=== PATIENT | female | born 1950 ===

== ENCOUNTER 2024-08-26 13:44 | Outpatient (AMB) | payer MEDICARE, MEDICAID, SELFPAY ==
--- NOTE | 2024-08-26 13:46 | HO.SPINEOV ---
Vital Signs 08/26/24 14:04 Height 5 ft 4 in Weight 155 lb BMI 26.6 Intake Visit Reasons: back pain Intake Note: Ms. Salinas is here today c/o leg pain. Garde Manger Required: No Allergies No Known Allergies Allergy (Verified 08/26/24 14:01) Physical Exam Vital Signs: BMI result Body Mass Index 26.6 Assessment & Plan Assessment & Plan (1) SI (sacroiliac) joint dysfunction: Code(s): M53.3 - Sacrococcygeal disorders, not elsewhere classified Category: Medical Plan Dear colleague Thank you for referring Kedar Salinas to the office today with a chief complaint of right SI joint pain. HPI: This 73-year-old female has chronic pain around the SI joint. The pain is present 24 hours a day. It wakes her up at night. She can not lay on her side. She can sit for 30 minutes before she has to get up. Walking is difficult due to the pain in that same area. She denies radiating pain into her leg. She denies numbness or weakness. She completed physical therapy chiropractic therapy and injections in the lower spine and SI joint without success. PMH: Asthma/COPD, hypertension Medications: Albuterol, atorvastatin, amlodipine, alendronate Allergies: NKDA Social history: Nonsmoker Physical Exam: Pleasant female. SI joint provocative tests are positive and causing pain in the right SI joint region. Straight leg produces pain in right SI joint. No neurological deficits for motor sensation or reflexes Radiological Studies: MRI of the lumbar spine done at [facility] shows [id number] L4-5 spinal stenosis. No foraminal stenosis. Impression/Plan: This patient is most likely suffering from right SI joint pathology. Her history is not suspicious for neurogenic claudication therefore we have to ignore the mild to moderate L4-5 spinal stenosis. All conservative treatments failed. I offered her a right SI joint fusion. She is tentatively scheduled for 10/06/2024. 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 Thank you for allowing me to participate in your patients care. total time spent was 50 minutes in counseling ,coordination of plan, personal review of imaging, surgical decision making and subsequent plan Patrick Godinez MD, PhD Sp[facility] Trained Neurosurgeon Director, [facility] Coding Level of Care Code New Pt Level 4 (10569) Diagnoses SI (sacroiliac) joint dysfunction M53.3
[2024-08-26 14:04] VITALS: BMI 26.6
== END 2024-08-26 15:25 | disposition home or self-care (01) ==
PROVIDERS: PCP Student in an Organized Health Care Education/Training Program; Referring Provider Physical Medicine & Rehabilitation; Visit Provider Neurological Surgery
DX: M53.3 Sacrococcygeal disorders, not elsewhere classified (principal)
CPT/HCPCS: 99204

== ENCOUNTER → 2024-08-26 13:44 | Outpatient (BNVA) | payer MEDICARE, MEDICAID, SELFPAY | PROVIDERS: Visit Provider Neurological Surgery | DX: M53.3 Sacrococcygeal disorders, not elsewhere classified (principal) | CPT/HCPCS: 99202 ==

== ENCOUNTER 2024-10-06 08:51 | Day surgery (SDC) | payer MEDICARE, MEDICAID, SELFPAY ==
[2024-09-22 12:06] VITALS: BMI 26.8
[2024-09-22 12:10] VITALS: BP 147/65; PULSE 93; RESP 18; O2SAT 95
--- NOTE | 2024-10-05 10:13 | HO.ANESPROP2 ---
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 Lumbar degenerative disc disease Spinal stenosis Dizziness Vitamin D deficiency Lumbar radiculopathy Personal history of tuberculosis GERD (gastroesophageal reflux disease) Prediabetes Hyperlipidemia Carotid atherosclerosis Elevated cholesterol HTN (hypertension) COPD (chronic obstructive pulmonary disease) Asthma Surgical History Surgical History History of esophagogastroduodenoscopy (EGD) H/O colonoscopy History of tubal ligation History of cholecystectomy Social History Social History Are you a primary client care consultant to a significant other at home: No Do you presently have visiting nurse or other home services: No Patient Tobacco Use Status: Never used Tobacco Use of substances other than those prescribed or required for medical reasons: No Have you been hit, kicked, punched, or otherwise hurt by someone within the past year? If so, by whom?: No Are you DNR?: No Advance Directives: No Advance Directives Information Provided: Yes Advance Directives on File: No Recently lost weight without trying: No Eating poorly because of decreased appetite: No Nutrition Risks: No Nutritional Risk Patient : No : No Poor oral hygiene: No Meds Allergies Allergy/AdvReac Type Severity Reaction Status Date / Time No Known Allergies Allergy Verified 10/06/24 09:02 Home Medications ?Medication ?Instructions ?Recorded ?Confirmed ?Last Taken ?Type alendronate 70 mg tablet 70 mg PO QWEEK 08/26/24 09/22/24 09/30/24 History amlodipine 5 mg tablet 5 mg PO DAILY 08/26/24 09/22/24 10/06/24 History atorvastatin 10 mg tablet 10 mg PO BEDTIME 08/26/24 09/22/24 10/05/24 History albuterol sulfate 2.5 mg/3 mL 2.5 mg inhalation Q4H PRN 09/22/24 09/22/24 Unknown History (0.083 %) solution for nebulization Shortness Of Breath Or Wheezing albuterol sulfate 90 mcg/actuation 2 puff inhalation QID PRN 09/22/24 09/22/24 10/05/24 History aerosol inhaler Shortness Of Breath Or Wheezing aspirin 81 mg tablet,delayed 81 mg PO DAILY 09/22/24 09/22/24 10/05/24 History release fluticasone furoate 200 2 ea inhalation DAILY 09/22/24 09/22/24 10/05/24 History mcg-vilanterol 25 mcg/dose inhalation powder (Breo Ellipta) loratadine 10 mg tablet 10 mg PO DAILY PRN Allergy Symptoms 09/22/24 09/22/24 10/05/24 History meloxicam 7.5 mg tablet 7.5 mg PO DAILY PRN Pain 09/22/24 09/22/24 09/30/24 History omeprazole 20 mg capsule,delayed 20 mg PO DAILY 09/22/24 09/22/24 10/06/24 History release Exam Height,Weight and Vital Signs: Height 5 ft 4 in Weight 70.76 kg Last Vital Signs Pulse 93 09/22/24 12:10 Resp 18 09/22/24 12:10 BP 147/65 H 09/22/24 12:10 Pulse Ox 95 09/22/24 12:10 O2 Del Method Room Air 09/22/24 12:10 Assessment and Plan Assessment Anesthesia Assessment: Chart Reviewed Documented by User: Zakia Garcia MD 10/06/24 10:21 [facility] Past Medical History Medical History Arthritis Back pain Cervicalgia Osteoporosis 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 Lumbar degenerative disc disease Spinal stenosis Dizziness Vitamin D deficiency Lumbar radiculopathy Personal history of tuberculosis GERD (gastroesophageal reflux disease) Prediabetes Hyperlipidemia Carotid atherosclerosis Elevated cholesterol HTN (hypertension) COPD (chronic obstructive pulmonary disease) Asthma Family History Family history of problems with anesthesia: No Surgical History Surgical History History of esophagogastroduodenoscopy (EGD) H/O colonoscopy History of tubal ligation History of cholecystectomy History of Problems with Anesthesia: No Social History Social History Are you a primary client care consultant to a significant other at home: No Do you presently have visiting nurse or other home services: No Patient Tobacco Use Status: Never used Tobacco Use of substances other than those prescribed or required for medical reasons: No Have you been hit, kicked, punched, or otherwise hurt by someone within the past year? If so, by whom?: No Are you DNR?: No Advance Directives: No Advance Directives Information Provided: Yes Advance Directives on File: No Recently lost weight without trying: No Eating poorly because of decreased appetite: No Nutrition Risks: No Nutritional Risk Patient : No : No Poor oral hygiene: No Meds Allergies Allergy/AdvReac Type Severity Reaction Status Date / Time No Known Allergies Allergy Verified 10/06/24 09:02 Home Medications ?Medication ?Instructions ?Recorded ?Confirmed ?Last Taken ?Type alendronate 70 mg tablet 70 mg PO QWEEK 08/26/24 09/22/24 09/30/24 History amlodipine 5 mg tablet 5 mg PO DAILY 08/26/24 09/22/24 10/06/24 History atorvastatin 10 mg tablet 10 mg PO BEDTIME 08/26/24 09/22/24 10/05/24 History albuterol sulfate 2.5 mg/3 mL 2.5 mg inhalation Q4H PRN 09/22/24 09/22/24 Unknown History (0.083 %) solution for nebulization Shortness Of Breath Or Wheezing albuterol sulfate 90 mcg/actuation 2 puff inhalation QID PRN 09/22/24 09/22/24 10/05/24 History aerosol inhaler Shortness Of Breath Or Wheezing aspirin 81 mg tablet,delayed 81 mg PO DAILY 09/22/24 09/22/24 10/05/24 History release fluticasone furoate 200 2 ea inhalation DAILY 09/22/24 09/22/24 10/05/24 History mcg-vilanterol 25 mcg/dose inhalation powder (Breo Ellipta) loratadine 10 mg tablet 10 mg PO DAILY PRN Allergy Symptoms 09/22/24 09/22/24 10/05/24 History meloxicam 7.5 mg tablet 7.5 mg PO DAILY PRN Pain 09/22/24 09/22/24 09/30/24 History omeprazole 20 mg capsule,delayed 20 mg PO DAILY 09/22/24 09/22/24 10/06/24 History release Exam Narrative Narrative: 12/2019. Exercise Myocardial perfusion scan-Normal exercise tolerance test. No ischemia. EF 61% Airway Mallampati Class: II (Small mouth. Overbite) TM Dist: >3cm Neck ROM: Full Loose/Missing/Broken Teeth: No (Denies broken, loose, missing teeth) Heart: RRR with occasional extra beats Lungs: CTAB Assessment and Plan Assessment Anesthesia Assessment: Anesthesia Plan Discussed and Chart Reviewed Final Anesthetic Review Family History of Problems with Anesthesia: No History of Problems with Anesthesia: No NPO: Yes (Sips of water over 2 hours ago) ASA Class: III Final Preanesthetic Review: No Changes in Pt Med Stat, Meds/Allgs Chart Reviewed, Consent Obtained/Reviewed and Anes Risks/Benef Reviewed Patient Risk: Intermediate Procedure Risk: Low Assessment/Block/Sedation in SS: Assess/Block/Sedation-SS Anesthetic Plan Anesthetic Plan: GA Disposition: Standard PACU
[2024-10-06] VITALS (16 sets, daily range): BP systolic 125–155; BP diastolic 52–71; PULSE 86–97; RESP 14–18; TEMP 36.1–36.7; O2SAT 92–100
[2024-10-06] MEDS: methocarbamoL 750 MG TABLET PO (09:26)
[2024-10-06] MEDS: Lactated Ringers 1,000 ML 100 ML IVCONT (09:26)
[2024-10-06] MEDS: Gabapentin 300 MG CAPSULE PO (09:26)
--- NOTE | 2024-10-06 09:58 | MHC.SHP ---
Pre-Procedural Eval Section A - 24 Hr Update-Section A only Date of Service: 10/06/24 The patient is an INPATIENT: No Section B - Complete if H&P > 30 days Chief Complaint: Sacrococcygeal disorders, Details of Present Illness: right si joint pain Allergies: Allergies Allergy/AdvReac Type Severity Reaction Status Date / Time No Known Allergies Allergy Verified 10/06/24 09:02 Review of Systems Sugical H&P ROS: Negative: Constitution, Cardiovascular, Respiratory, Neurological, Psychiatric, Hem-Onc, Allergic/Immunologic, Gastrointestinal, Genitourinary, Musculoskeletal, Integumentary, Endocrine and Eyes/Ears/Nose/Throat Exam Surgical H&P Exam: Normal: HEENT, Normal: Heart, Normal: Lungs, Normal: Extremities, Normal: Abdomen, Normal: Skin and Normal: Neurological (awake, alert) Plan Diagnosis/Plan: Unchanged I have reviewed the history and physical and performed a pertinent physical examination on my patient. No changes have occurred unless specified. Right SI joint fusion Time Spent With Patient Time: Total time managing care of this patient today ____ minutes.
--- NOTE | 2024-10-06 10:44 | P.DS_ITS ---
DS: Providers Provider Date of Service: 10/06/24 Date of discharge: 10/06/24 Primary care physician: YUDI Woodall Admitting clinician: Patrick Godinez DS: Diagnosis Discharge Diagnosis (1) SI (sacroiliac) joint dysfunction: Status: Acute DS: Summary Time Attestation Discharge Coordination Time (in mins): 5 Quality: Safe Use of Opioids Does Pt have an Active Cancer Diagnosis on the Problem List?: No Quality: Stroke Does the patient have a stroke diagnosis?: No Physical Exam Vital Signs: Vital Signs: Last Vital Signs Temp 98.1 F 10/06/24 09:16 Pulse 97 10/06/24 09:16 Resp 18 10/06/24 09:16 BP 155/71 H 10/06/24 09:16 Pulse Ox 100 10/06/24 09:16 O2 Del Method Room Air 10/06/24 09:16 BMI result Body Mass Index 26.8 Discharge Plan Discharge Patient Disposition: Home, Self-Care Referrals: Jayashree Mock PA [Primary Care Provider] - 1 Week Discharge Medications: New docusate sodium [Colace] 100 mg capsule 100 mg PO BID Qty: 20 0RF oxycodone 5 mg tablet 5 mg PO Q4H PRN (Reason: pain) Qty: 20 0RF Rx Instructions: Partial Fill upon patient request. Continued albuterol sulfate 2.5 mg /3 mL (0.083 %) Solution For Nebulization 2.5 mg INHALATION Q4H PRN (Reason: Shortness Of Breath Or Wheezing) aspirin 81 mg Tablet,Delayed Release (Dr/Ec) 81 mg PO DAILY meloxicam 7.5 mg Tablet 7.5 mg PO DAILY PRN (Reason: Pain) omeprazole 20 mg capsule,delayed release(DR/EC) 20 mg PO DAILY albuterol sulfate 90 mcg/actuation Hfa Aerosol Inhaler 2 puff INHALATION QID PRN (Reason: Shortness Of Breath Or Wheezing) loratadine 10 mg Tablet 10 mg PO DAILY PRN (Reason: Allergy Symptoms) fluticasone furoate-vilanterol [Breo Ellipta] 200-25 mcg/dose blister with device 2 ea inhalation DAILY amlodipine 5 mg tablet 5 mg PO DAILY atorvastatin 10 mg tablet 10 mg PO BEDTIME alendronate 70 mg tablet 70 mg PO QWEEK Discharge Orders: Discharge Order (Routine); Ordered 10/06/24 Ordered By: Jameson Gaytan Diet: Advance to usual diet Activity on Discharge: Walk with crutches Activity Restrictions/Additional Instructions: After your SI joint fusion surgery we ask you to observe the following restric tions/guidelines: Activity: It is normal to feel some discomfort as you increase your activity, but that will improve with time. We ask you avoid heavy lifting or acitivities that cause pain. As a general rule, 8lbs is a safe limit for lifting right after surgery. We ask you to stay off your right leg after surgery in order to help the SI joint fuse. Please use crutches or walker. You may return to driving when you are off narcotics (such as vicodin, oxycodone, dilaudid, etc), and you are back to normal functional capacity. If you have any concerns please check with office before driving. Return to work is specific to each patient and each surgery, so please speak with your doctor/PA at first follow up. Please bring paperwork such as FMLA at that time if you need it filled out. Follow up: Please call the office, , after surgery to arrange a 3 week follow up for wound check. Wound Care: Your wound was closed with glue, there are no sutures to remove. You may shower on post op day # 1. We ask that you do not let the water soak the wound. If it does get wet, just towel dry lightly. Please do not scrub your incision or place any type of chemical/ointment on the wound. No tub baths, pools or jacuzzis for one month. If you have any leaking or redness from your wound, or fevers, please call office Medications: We will give you a short supply of narcotics after surgery (usually one weeks worth). If you need more please call the office but do not use more than prescribed. You will need to give our office 48 hours notice if you need narcotics refilled and we do not fill narcotics on weekends or evenings. If you are on a narcotic, it is a good idea to take a stool softener such as colace or senna to avoid constipation If you take blood thinner such as aspirin, Plavix, Coumadin, Effient, Eliquis etc for conditions such as Afib, DVT, Pulmonary embolus, coronary disease, stents etc please speak with your surgeon about specific details as to when you can resume these medications. You can resume NSAIDs on post op day 1 (eg: Motrin, Naproxen, etc). Print Language: Swedish
--- NOTE | 2024-10-06 11:29 | W.PM.OPN ---
Operative Note Operative Note Date of Service: 10/06/24 Narrative: Preoperative diagnosis: Right sacroiliac joint dysfunction Postoperative diagnosis: Same Operative procedure: Right sacroiliac joint fusion with 1 allograft implant Surgeon: Patrick Godinez MD, PhD [employer] Instructor: Jameson Gaytan PA-C Anesthesia: General Description of procedure: The patient is suffering from right SI joint dysfunction refractory to nonoperative management. The patient has tried and failed all forms of conservative manage med except for an excellent short-term response to a sacroiliac joint injection. The sacroiliac joint was confirmed to be the pain generator after repeated pain blocks. The patient was offered surgical treatment with fixation and arthrodesis of the SI joint. The patient was brought to the operating room and endotracheally intubated. The patient was turned in a prone position on Dustin spine table. Prepping and draping was done followed by a time-out. A C-arm was alternately positioned for lateral, oblique oblique and pelvic inlet and outlet projections througout the procedure. Skin markings were made for the anticipated position of the implant. A 2.5 cm longitudinal skin incision was made. A guide pin was inserted in an outlet oblique image for guidance follow-up insertion of dilator and working cannula. This was secured by placing an anchor pin into the ilium. Consideration was taken to cut channels utilizing a series of drills for decortication and internal fixation device placement. The implant was inserted such that it passed through the ilium, across the sacroiliac joint and into the sacrum, thus transfixing the sacroiliac joint. Proper positioning was confirmed on lateral fluoroscopy. The implant was packed with autologous bone collected from remain of the sacrum and ilium. Additional graft material was inserted into the channel void following the implant. The instruments were withdrawn. Upon completion, final images were obtained that showed a satisfactory position of the implant. Hemostasis was done. The incision was closed with an 0 Vicryl to fashion a 3-0 Vicryl subdermal layer after injecting Marcaine. Dermabond was used to approximate the surgeon. All sponge and needle counts were correct. Patient was extubated and transported in a stable condition to recovery room. Estimated blood loss: 30 mL Complications: None Disposition: Discharge to home
[2024-10-06] MEDS: fentaNYL citrate/PF 100 MCG/2 ML VIAL 25 MCG IVPUSH ×2 (12:36→12:52)
== END 2024-10-06 15:36 | disposition home or self-care (01) ==
PROVIDERS: PCP Physician Assistant Medical; Visit Provider Neurological Surgery
PROC: (CPT 27279; principal; 2024-10-06 12:00)
DX: M46.1 Sacroiliitis, not elsewhere classified (principal); M53.3 Sacrococcygeal disorders, not elsewhere classified; M81.0 Age-related osteoporosis without current pathological fracture; J44.9 Chronic obstructive pulmonary disease, unspecified; M48.07 Spinal stenosis, lumbosacral region; R73.03 Prediabetes; Z79.51 Long term (current) use of inhaled steroids; Z79.82 Long term (current) use of aspirin; Z79.899 Other long term (current) drug therapy; Z90.49 Acquired absence of other specified parts of digestive tract
CPT/HCPCS: 27279; C1713; J0131; J0690; J1100; J1885; J2003; J2371; J2405; J2704; J3010; L8699

== ENCOUNTER → 2024-10-06 08:51 | Outpatient (BNV) | payer MEDICARE, MEDICAID, SELFPAY | PROVIDERS: PCP Physician Assistant Medical; Visit Provider Physician Assistant | DX: M53.3 Sacrococcygeal disorders, not elsewhere classified (principal) | CPT/HCPCS: 27279; 99499 ==

== ENCOUNTER 2024-10-31 13:49 | Outpatient (REF) | payer MEDICARE, MEDICAID, SELFPAY | END 2024-10-31 13:50 | disposition home or self-care (01) | LOC: HO.HOSX 13:49 | PROVIDERS: PCP Physician Assistant Medical; Visit Provider Physician Assistant | DX: M53.3 Sacrococcygeal disorders, not elsewhere classified (principal); Z98.1 Arthrodesis status | CPT/HCPCS: 99212 ==

== ENCOUNTER 2024-10-31 13:49 | Outpatient (AMB) | payer MEDICARE, MEDICAID, SELFPAY ==
--- NOTE | 2024-10-31 13:54 | HO.SPINEOV ---
Intake Visit Reasons: 1st post op Intake Note: Ms. Salinas is here today for her 1st post op. Pet Supplies Salesperson Required: Yes Pet Supplies Salesperson Services: Pet Supplies Salesperson Present Allergies No Known Allergies Allergy (Verified 10/06/24 09:02) Assessment & Plan Assessment & Plan (1) SI (sacroiliac) joint dysfunction: Code(s): M53.3 - Sacrococcygeal disorders, not elsewhere classified Category: Medical Plan Operation: R. SI joint fusion Kedar is a pleasant 74 year old female who comes in today for follow up after having right SI joint fusion completed about 3 weeks ago. She reports that she has continued to have pain in her right lateral thigh despite surgery. She did have a few days of relief after surgery but has had recurrent pain with ambulation since then. It was difficult to adequately ascertain whether or not she had been weight-bearing after surgery. Initially it seemed as though she was putting weight on her right leg but using a walker for assistance. After further discussion it seems she may not have been putting weight on that leg despite the initial disclosure that she was walking with a walker vs. Crutches. Either way, we discussed the postoperative healing course, and I believe her pain is likely coming from postoperative inflammation. No new neurological deficits. The patient ambulates well and rises from a seated position without difficulty. Her posterior incision site appears closed, well healing, no signs of drainage. I would like to follow up with Kedar again in 6 weeks for her 2nd postoperative visit. At that time we will get an x-ray of the right SI joint. Manuel Godinez MD,PhD [facility] Orders: Orders XR sacroiliac joint 1-2V Today M53.3 - Sacrococcygeal disorders, not elsewhere classified Coding Level of Care Code Global (15947) Diagnoses SI (sacroiliac) joint dysfunction M53.3
== END 2024-10-31 14:13 | disposition home or self-care (01) ==
PROVIDERS: PCP Physician Assistant Medical; Visit Provider Physician Assistant
DX: M53.3 Sacrococcygeal disorders, not elsewhere classified (principal)
CPT/HCPCS: 99024

== ENCOUNTER 2024-12-14 13:37 | Outpatient (AMB) | payer MEDICARE, MEDICAID, SELFPAY ==
--- NOTE | 2024-12-14 13:31 | HO.SPINEOV ---
Intake Visit Reasons: 2nd post op with Xrays Intake Note: Ms. Salinas is here today for her 2nd post op with xrays. General Labor Required: Yes General Labor Services: General Labor Present Allergies No Known Allergies Allergy (Verified 10/06/24 09:02) Assessment & Plan Assessment & Plan (1) Right hip pain: Code(s): M25.551 - Pain in right hip Category: Medical Plan Procedure: Right sacroiliac joint fusion Kedar comes in today for her 2nd postoperative visit. To recap during her 1st postop visit she was reporting pain in her right lateral thigh. Today she reports this pain has resolved, alongside the pain that was well localized to her SI joint on the right. Unfortunately for the past few weeks she has had fairly severe pain in the right trochanteric bursa. She reports that this worsens with the excessive movement and walking. She has never been evaluated for hip pathology in the past. When describing her pain she points directly to the right lateral hip near the greater trochanter. She has pain to direct palpation of this area. No new neurological deficits. The patient ambulates well with the assistance of a cane. She rises from a seated position with the assistance. She elicits pain to passive range of motion of the right hip. I would like to have the patient referred to our colleagues in orthopedics to ensure the patient is not suffering from any underlying right-sided hip pathology. Manuel Godinez MD,PhD [facility] Orders: Referrals Orthopedics Referral M25.551 - Pain in right hip Coding Level of Care Code Global (80309) Diagnoses Right hip pain M25.551
--- OUTSIDE RECORDS SUMMARY | 2024-12-14 15:47 | XMS_ITS | Clinical Summary ---
Author Organization [facility] Address [address] [place] [address] Phone Care Team Providers Care Master Welder Name Role Phone Russel Delvalle MD Primary Care Provider Allergies Active Allergy Reactions Criticality Noted Date Comments Other 05/04/2015 Seasonal Runny nose , sneezing Medications Medication Sig Dispensed Refills Start Date End Date Status multivit-min/iron/fo lic acid/K (ADULTS MULTIVITAMIN ORAL) Take by mouth daily. Active meloxicam (MOBIC) 7.5 mg tablet Take 1 tablet (7.5 mg total) by mouth 1 (one) time each day. 09/22/2024 Active albuterol 2.5 mg /3 mL (0.083 %) nebulizer solution Take 1 Vial by nebulization every 4 hours as needed for Wheezing for up to 90 days. Dx- j44.9 copd 09/07/2024 Active alendronate (FOSAMAX) 70 mg tablet TAKE 1 TABLET BY MOUTH EVERY 7 DAYS FOR 360 DAYS. 08/24/2024 Active atorvastatin (LIPITOR) 10 mg tablet Take 1 tablet (10 mg total) by mouth 1 (one) time each day. 07/19/2024 Active amLODIPine (NORVASC) 5 mg tablet Take 1 tablet (5 mg total) by mouth 1 (one) time each day. 07/18/2024 Active omeprazole (PriLOSEC) [address] capsule Take 1 capsule (20 mg total) by mouth 1 (one) time each day. 06/29/2024 Active loratadine (CLARITIN) 10 mg tablet TAKE 1 TABLET BY MOUTH DAILY NEEDED FOR ALLERGIES. 11/25/2023 Active aspirin 81 mg EC tablet Take 1 tablet (81 mg total) by mouth 1 (one) time each day. 07/06/2023 Active Active Problems Problem Noted Date Diagnosed Date Prediabetes 07/18/2024 Lumbar spondylosis 05/12/2024 Overview (11/03/2024): Last Assessment & Plan: Patient with 2-3-year history of low back (approximately L5-S1/sacral pain), no inciting event. Patient's son acted as engineer design and construction, he states her main pain is in the low back and right low back/buttock, which patient confirmed when she demonstrated her area of pain. She had an injection in the low back about 2 years ago, did not feel it helped. Starting October 2023 she had sudden onset of right lateral hip pain in addition to her chronic back pain, which is constant. When asked, patient states she also gets a little bit of right groin and anterior thigh pain, at times has to lift the right leg to get in and out of the car. She states the pain is constant no matter what position she is in, the pain makes it difficult for her to walk any significant distance, she does not see an improvement with leaning on a shopping cart, if she is walking and sits down she does not get relief of her symptoms. When she is walking she does feel that both legs get tired/heavy. She rates the pain 8/10, constantly. She uses meloxicam and Tylenol, has tried other lrzm-xjz-ckftjji meds occasionally. 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 She denies any radiating pain down the leg, no numbness tingling in the feet or weakness. Patient had MRI lumbar spine 01/11/2024 at [facility] that shows mild L5- S1 DDD with some Modic changes, L4-5 disc bulging and mild central stenosis, DJD at both levels. No severe stenosis noted at any level. I reviewed the MRI images with the patient and her son in detail on the computer. Patient had a lumbar CT in 2020 that on the report showed moderate-severe L4-5 stenosis, does not appear severe to our review. Ms. Salinas overall has mild findings on lumbar MRI, I do not think Dr. Perez will recommend surgery but I will review the imaging with her. Some of her back pain could be related to the L5-S1 degenerative changes. I did not see any severe central stenosis and patient is not describing classic neurogenic claudication symptoms. Patient has some tenderness over the right SI joint and lateral hip, + right hip mechanical testing. To be thorough I will check right hip x-ray. She is also on atorvastatin, they could try a statin vacation for 2 weeks to see if that has any effect on her back pain. She has a follow-up appointment tomorrow with Dr. Murray, I think for right SI joint injection according to his note, will see if that gives her any improvement in her back and buttock pain. All questions answered. ADDENDUM: I reviewed patient's lumbar MRI with Dr. Perez, no findings that would require surgical intervention. I looked at patient's right hip x-ray with Dr. Perez, it looks like she has sclerotic changes right SI joint, official report pending. Dizziness 07/06/2023 Overview (11/03/2024): Last Assessment & Plan: Dizziness has been mild and constant for more than 6 months. She reported dizziness during the office visit and was also static and blood pressure check. However her blood pressure and pulse were unchanged with supine to standing position. Her heart rate is normal and EKG only showed 1 PVC. I will arrange 24-hour Holter monitor to assess the symptom and rhythm correlation. I suspect her dizziness are caused by ear problem. She does not have obvious heart murmur and echocardiogram and stress test 3 years ago were normal. She does not have symptoms to suggest angina or heart failure. I will hold off repeating cardiac imaging. Vitamin D deficiency 07/06/2023 Lumbar degenerative disc disease 09/27/2021 Spinal stenosis 09/27/2021 Overview (11/03/2024): CT 09/12: Mod-severe at L4-5 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 02/01 Atherosclerosis of both carotid arteries 020 Overview (11/03/2024): Rt 50-69% and left <49%- rpt usg in one year Chronic obstructive pulmonary disease 05/24/2018 Osteoporosis 06/01/2017 Overview (11/03/2024): Fosamax 5 yrs Essential hypertension 04/11/2016 Cervicalgia 02/03/2007 Esophageal reflux 10/20/2006 Overview (11/03/2024): 05/01/14 dr march normal upper gi and normal colonosocpy Known medical problems 10/20/2006 Overview (11/03/2024): Lt apical pl plaque with ? parenchymal opacity IMO update Encounters Date Type Department Care Team Description 10/07/2024 7:32 PM EST - 10/07/2024 11:41 PM EST Emergency [facility] Emergency [address] [place] [address] Ramiro Heller MD Chest pain, unspecified type (Primary Dx); Bilateral calf pain; Chest pain on breathing Discharge Disposition: Home or Self Care from Last 3 Months Immunizations Name Administration Dates Next Due Influenza trivalent, with pr eservative (Fluzone; Afluria) 6mo and older 09/19/2024 Surgical History Surgery Date Site/Laterality Comments TUBAL LIGATION PROCEDURE: HISTORICAL TUBAL LIGATION CHOLECYSTECTOMY PROCEDURE: HISTORICAL CHOLECYSTECTOMY ESOPHAGOGASTRODUODENOSCOPY 05/01/2014 N/A PROCEDURE: DC ESOPHAGOGASTRODUODENOSCOPY TRANSORAL DIAGNOSTIC; COMMENT: normal CHOLECYSTECTOMY PROCEDURE: DC LAPAROSCOPY SURG CHOLECYSTECTOMY Medical History Medical History Date Comments Essential hypertension 04/11/2016 DX:Essent ial hypertension Asthma-COPD overlap syndrome (CMS/HCC) 05/24/2018 DX:Asthma-COPD overlap syndr ome (HCC) Arthritis DX:Arthritis Irritable bowel syndrome wit hout diarrhea DX:Irritable bowel syndrome without diarrhea Family History Medical History Relation Name Comments Breast cancer Neg Hx Colon cancer Neg Hx Ovarian cancer Neg Hx Relation Name Status Comments Brother Alive 4,helathy Father not known Mother Sister Alive 3,healthy Social History Tobacco Use Types Packs/Day Years Used Date Smoking Tobacco: Never Smokeless Tobacco: Never Alcohol Use Standard Drinks/Week Comments No 0 (1 standard drink = 0.6 oz pur e alcohol) Sex and Gender Information Value Date Recorded Sex Assigned at Not on file Gender Identity Not on file Sexual Orientation Not on file Job Start Date Occupation Industry Not on file Not on file Not on file Obstetrics History Last Filed Vital Signs Vital Sign Reading Time Taken Comments Blood Pressure 132/80 10/07/2024 11:25 PM EST Pulse 90 10/07/2024 11:25 PM EST Temperature 36.9 ??C (98.5 ??F) 10/07/2024 11:[address] Respiratory Rate 18 10/07/2024 11:25 PM EST Oxygen Saturation 99% 10/07/2024 11:25 PM EST Inhaled Oxygen Concentration - - Weight 68 kg (150 lb) 10/07/2024 7:47 PM EST Height 162.6 cm (5' 4 ) 10/07/2024 7:47 PM EST Body Mass Index 25.75 10/07/2024 7:47 PM EST Plan of Treatment Upcoming Encounters Date Type Department Care Team (Late st Contact Info) Description 03/08/2025 1:15 PM EDT Office Visit Pulmonolgy - [place] [address] [place] [id number] Toan Bradford MD [address] [place] [address] Health Maintenance Due Date Last Done Comments Zoster Vaccines (1 of 2) 2002 RSV Immunization Patients 60+ Years Old (1 - Risk 60-74 years 1-dose series) 2012 Medicare Annual Wellness Visit 11/01/2022 Social Influencers of Health Screening 11/01/2022 Breast Cancer Screening 01/10/2024 01/10/20, 07/02/2020, 05/17/2019, Additional history exists Colorectal Cancer Screening: Colonoscopy 05/01/2024 05/01/2014 COVID-19 Vaccine ( season) 2024 12/04/2021, 04/18/2021, 03/29/2021, Additional history exists Depression Screening 12/30/2024 12/30/2023 Falls Risk Assessment 12/30/2024 12/30/2023 Hypertension/CHF/CAD Annual BMP Blood Test 10/07/2025 10/07/2024, 07/18/2024, 07/18/2024 Cholesterol Screening (Lipid Panel) 07/18/2029 07/18/2024, 07/18/2024 DTaP,Tdap,and Td Vaccines (3 - Td or Tdap) 10/05/2030 10/05/2020, 08/28/2010 Osteoporosis Screening (Bone Density Screening) 06/30/2033 06/30/2023, 07/23/2017 Hepatitis C Screening Completed 03/15/2009 Meningococcal ACWY Vaccine Aged Out 01/01/2018 N o longer eligible based on patient's age to complete this topic Pneumococcal Vaccine: 65+ Years Completed 10/05/2020, 09/27/2018, 01/21/2012 Influenza Vaccine Completed 09/19/2024, , 09/26/2022, Additional history exists HIB Vaccines Aged Out No longer eligi ble based on patient's age to complete this topic HPV Vaccines Aged Out No longer eligi ble based on patient's age to complete this topic Hepatitis A Vaccines Aged Out No long er eligible based on patient's age to complete this topic Hepatitis B Vaccines Aged Out No long er eligible based on patient's age to complete this topic IPV Vaccines Aged Out No longer eligi ble based on patient's age to complete this topic MMR Vaccines Aged Out No longer eligi ble based on patient's age to complete this topic RSV Immunization Patients Under 20 months Aged Out No longer eligible based on patient's age to complete this topic Varicella Vaccines Aged Out No longer eligible based on patient's age to complete this topic Procedures Procedure Name Priority Date/Time Associated Diagnosis Comments VAS US DUPLEX LOWER EXT VENOUS BILAT Routine 10/07/2024 11:18 PM EST Bilateral calf pain CT ANGIO CHEST WO AND/OR W CONTRAST Routine 10/07/2024 9:45 PM EST Chest pain, unspecified type TROPONIN I HIGH SENSITIVITY STAT 10/07/2024 9:24 PM EST XR CHEST 2 VIEWS STAT 10/07/2024 8:55 PM EST CBC WITH AUTO DIFFERENTIAL STAT 10/07/2024 8:13 PM EST B-TYPE NATRIURETIC PEPTIDE STAT 10/07/2024 8:13 PM EST MAGNESIUM STAT 10/07/2024 8:13 PM EST LIPASE STAT 10/07/2024 8:13 PM EST COMPREHENSIVE METABOLIC PANEL STAT 10/07/2024 8:13 PM EST CBC AND DIFFERENTIAL STAT 10/07/2024 8:13 PM EST TROPONIN I HIGH SENSITIVITY STAT 10/07/2024 8:13 PM EST ECG 12-LEAD STAT 10/07/2024 7:47 PM EST ECG ANNOTATED 10/07/2024 LIPID PANEL Routine 07/18/2024 DEPRESSION SCREENING Routine 12/30/2023 FALLS RISK ASSESSMENT Routine 12/30/2023 DXA BONE DENSITY STUDY 1+ SITS AXIAL SKEL Routine 06/30/2023 1:38 PM EDT Age-related osteoporosis without current pathological fracture JAYSHREE SCREENING DIGITAL Routine 01/10/2022 3:48 PM EST Encounter for screening mammogram for malignant neoplasm of breast COLONOSCOPY Routine 05/01/2014 HEPATITIS C SCREENING Routine 03/15/2009 from Last 3 Months or Most Recently Relevant to Health Maintenance Results * Vascular US duplex lower extremity venous bilateral (10/07/2024 11:18 PM EST) Anatomical Region Laterality Modality Vascular, Abdomen Ultrasound 10/08/2024 10:2 6 AM EST Impressions 10/08/2024 10:27 AM EST NO RIGHT OR LEFT LOWER EXTREMITY DEEP VENOUS THROMBOSIS. -------- FINAL REPORT -------- Dictated By: GERRY CHURCH Dictated Date: 10/08/2024 10:26 ET Assigned Physician: GERRY CHURCH Reviewed and Electronically Signed By: GERRY CHURCH Signed Date: 10/08/2024 10:27 ET Workstation ID: [id number] Transcribed By: Self Edit Transcribed Date: 10/08/2024 10:26 ET Narrative 10/08/2024 10:27 AM EST PROCEDURE: VAS US DUPLEX LOWER EXT VENOUS BILAT INDICATION: Pain TECHNIQUE: 2-D and color Doppler imaging of the lower extremity venous vasculature with compression and augmentation maneuvers. COMPARISON: No priors available. FINDINGS: RIGHT: There is normal flow, compression, and augmentation from the common femoral through the popliteus. LEFT: There is normal flow, compression, and augmentation from the common femoral through the popliteus. Visualized calf veins are patent. ??No mass or fluid collection. Procedure Note Gerry Church MD - 10/08/2024 PROCEDURE: VAS US DUPLEX LOWER EXT VENOUS BILAT INDICATION: Pain TECHNIQUE: 2-D and color Doppler imaging of the lower extremity venousvasculature with compression and augmentation maneuvers. COMPARISON: No priors available. FINDINGS: RIGHT: There is normal flow, compression, and augmentation from the commonfemoral through the popliteus. LEFT: There is normal flow, compression, and augmentation from the commonfemoral through the popliteus. Visualized calf veins are patent. No mass or fluid collection. IMPRESSION: NO RIGHT OR LEFT LOWER EXTREMITY DEEP VENOUS THROMBOSIS. -------- FINAL REPORT -------- Dictated By: GERRY CHURCH Dictated Date: 10/08/2024 10:26 ET Assigned Physician: GERRY CHURCH Reviewed and Electronically Signed By: GERRY CHURCH Signed Date: 10/08/2024 10:27 ET Workstation ID: [id number] Transcribed By: Self Edit Transcribed Date: 10/08/2024 10:26 ET Ramiro Heller MD CV VASCULAR PROCEDU RES * CT Angio Chest wo and/or w Contrast (10/07/2024 9:45 PM EST) Anatomical Region Laterality Modality Body Computed Tomogra phy 10/07/2024 10:3 4 PM EST Impressions 10/07/2024 10:34 PM EST Impression: 1. No pulmonary emboli. 2. No thoracic aortic aneurysm or dissection 3. No pneumonia This document has been electronically signed by: Jolanta Frias MD on 10/07/2024 22:34:58 Narrative 10/07/2024 10:34 PM EST Exam: CTA Chest with IV contrast. Procedure: Coronal and sagittal MIP reformats were performed Comparison: None Clinical history: PE suspected, high probability. Findings: No pulmonary emboli. No thoracic aortic aneurysm or dissection. No hilar or mediastinal adenopathy. No pericardial fluid collection. No pneumothorax. No pleural fluid collection. No pneumonia Bilateral apical pleural-parenchymal scarring. Visualized liver and spleen do not demonstrate any acute process Prior cholecystectomy No thoracic spine compression fractures Procedure Note Jolanta Frias MD - 10/07/2024 Exam: CTA Chest with IV contrast. Procedure: Coronal and sagittal MIP reformats were performed Comparison: None Clinical history: PE suspected, high probability. Findings: No pulmonary emboli. No thoracic aortic aneurysm or dissection. No hilar or mediastinal adenopathy. No pericardial fluid collection. No pneumothorax. No pleural fluid collection. No pneumonia Bilateral apical pleural-parenchymal scarring. Visualized liver and spleen do not demonstrate any acute process Prior cholecystectomy No thoracic spine compression fractures IMPRESSION: Impression: 1. No pulmonary emboli. 2. No thoracic aortic aneurysm or dissection 3. No pneumonia This document has been electronically signed by: Jolanta Frias MD on 10/07/2024 22:34:58 Ramiro Heller MD IMG CT PROCEDURES * Troponin I high sensitivity (10/07/2024 9:24 PM EST) Only the most recent of2 resultswithin the time period is included. High Sensitivity Troponin I 7 <=54 ng/L LAB CHEMISTRY METHOD 10/07/2024 10:16 PM EST [facility] Blood Venous blood specimen / Unknown Venipuncture / Unknown 10/07/2024 9:24 PM EST 10/07/2024 9:48 PM EST Narrative [facility] - 10/07/2024 10:16 PM EST High levels of biotin in samples may falsely decrease hsTroponin values. ??Use caution when interpreting hsTroponin results in patients taking biotin who exhibit renal impairment (eGFR <60) or in patients taking more than 20 mg/day of biotin. Ramiro Heller MD LAB BLOOD ORDERABLE S [facility] [address] [place] [address], * XR Chest 2 Views (10/07/2024 8:55 PM EST) Anatomical Region Laterality Modality Body Radiographic Jordyn ging 10/08/2024 8:21 AM EST Impressions 10/08/2024 8:22 AM EST FINDINGS/IMPRESSION: No pneumonia or pulmonary edema. ??Biapical pleural- parenchymal scarring is unchanged. ??No pleural effusion or pneumothorax. ??Cardiac silhouette is normal in size. ??Degenerative changes seen throughout the bones. ??Cholecystectomy clips. -------- FINAL REPORT -------- Dictated By: GERRY CHURCH Dictated Date: 10/08/2024 08:21 ET Assigned Physician: GERRY CHURCH Reviewed and Electronically Signed By: GERRY CHURCH Signed Date: 10/08/2024 08:22 ET Workstation ID: [id number] Transcribed By: Self Edit Transcribed Date: 10/08/2024 08:21 ET Narrative 10/08/2024 8:22 AM EST XR CHEST 2 VIEWS INDICATION: ??Chest pain TECHNIQUE: XR CHEST 2 VIEWS COMPARISON: 07/11/2024 Procedure Note Gerry Church MD - 10/08/2024 XR CHEST 2 VIEWS INDICATION: Chest pain TECHNIQUE: XR CHEST 2 VIEWS COMPARISON: 07/11/2024 IMPRESSION: FINDINGS/IMPRESSION: No pneumonia or pulmonary edema. Biapicalpleural- parenchymal scarring is unchanged. No pleural effusion orpneumothorax. Cardiac silhouette is normal in size. Degenerative changesseen throughout the bones. Cholecystectomy clips. -------- FINAL REPORT -------- Dictated By: GERRY CHURCH Dictated Date: 10/08/2024 08:21 ET Assigned Physician: GERRY CHURCH Reviewed and Electronically Signed By: GERRY CHURCH Signed Date: 10/08/2024 08:22 ET Workstation ID: [id number] Transcribed By: Self Edit Transcribed Date: 10/08/2024 08:21 ET Ramiro Heller MD IMG XR PROCEDURES * (ABNORMAL) CBC auto differential (10/07/2024 8:13 PM EST) WBC 13.3(H) 4.8 - 10.8 K/mcL LAB HEMETOLOGY METHOD 10/07/2024 8:38 PM [facility] RBC 5.10(H) 3.80 - 4.80 M/mcL LAB HEMETOLOGY METHOD 10/07/2024 8:38 PM [facility] Hemoglobin 12.8 11.5 - 16.0 g/dL LAB HEMETOLOGY METHOD 10/07/2024 8:38 PM [facility] Hematocrit 41.6 35.0 - 47.0 % LAB HEMETOLOGY METHOD 10/07/2024 8:38 PM [facility] MCV 82.4 79.0 - 98.0 FL LAB HEMETOLOGY METHOD 10/07/2024 8:38 PM [facility] MCH 25.3(L) 27.0 - 32.0 pcg LAB HEMETOLOGY METHOD 10/07/2024 8:38 PM [facility] MCHC 30.8(L) 32.0 - 37.0 g/dL LAB HEMETOLOGY METHOD 10/07/2024 8:38 PM [facility] RDW 15.2(H) 11.0 - 15.0 % LAB HEMETOLOGY METHOD 10/07/2024 8:38 PM [facility] Platelets 298 130 - 400 K/mcL LAB HEMETOLOGY METHOD 10/07/2024 8:38 PM [facility] MPV 10.1 7.0 - 11.0 FL LAB HEMETOLOGY METHOD 10/07/2024 8:38 PM [facility] NRBC 0.0 <1.0 % LAB HEMETOLOGY METHOD 10/07/2024 8:38 PM [facility] NRBC Absolute 0.00 <0.10 K/mcL LAB HEMETOLOGY METHOD 10/07/2024 8:38 PM [facility] Neutrophils Relative 67.5 % LAB HEMETOLOGY METHOD 10/07/2024 8:38 PM [facility] Lymphocytes Relative 22.3 % LAB HEMETOLOGY METHOD 10/07/2024 8:38 PM [facility] Monocytes Relative 8.2 % LAB HEMETOLOGY METHOD 10/07/2024 8:38 PM [facility] Eosinophils Relative 1.0 % LAB HEMETOLOGY METHOD 10/07/2024 8:38 PM [facility] Basophils Relative 0.5 % LAB HEMETOLOGY METHOD 10/07/2024 8:38 PM [facility] Immature Granulocytes Relative 0.5 % LAB HEMETOLOGY METHOD 10/07/2024 8:38 PM [facility] Neutrophils Absolute 8.95(H) 1.50 - 7.00 K/mcL LAB HEMETOLOGY METHOD 10/07/2024 8:38 PM [facility] Lymphocytes Absolute 2.96 1.00 - 5.00 K/mcL LAB HEMETOLOGY METHOD 10/07/2024 8:38 PM EST [facility] Monocytes Absolute 1.09(H) 0.20 - 1.00 K/[facility] LAB HEMETOLOGY METHOD 10/07/2024 8:38 PM EST [facility] Eosinophils Absolute 0.13 0.00 - 0.50 K/[facility] LAB HEMETOLOGY METHOD 10/07/2024 8:38 PM EST [facility] Basophils Absolute 0.07 0.00 - 0.20 K/[facility] LAB HEMETOLOGY METHOD 10/07/2024 8:38 PM EST [facility] Immature Granulocytes Absolute 0.07(H) 0.00 - 0.03 K/[facility] LAB HEMETOLOGY METHOD 10/07/2024 8:38 PM EST [facility] Blood Venous blood specimen / Unknown Venipuncture / Unknown 10/07/2024 8:13 PM EST 10/07/2024 8:28 PM EST Ramiro Heller MD LAB BLOOD ORDERABLE S [facility] [address] [place] [address], * B-type natriuretic peptide (10/07/2024 8:13 PM EST) BNP 72 <=100 pcg/mL LAB CHEMISTRY METHOD 10/07/2024 9:07 PM EST [facility] Blood Venous blood specimen / Unknown Venipuncture / Unknown 10/07/2024 8:13 PM EST 10/07/2024 8:28 PM EST Ramiro Heller MD LAB BLOOD ORDERABLE S [facility] [address] [place] [address], * Magnesium (10/07/2024 8:13 PM EST) Magnesium 2.0 1.9 - 2.6 mg/dL LAB CHEMISTRY METHOD 10/07/2024 9:00 PM EST [facility] Blood Venous blood specimen / Unknown Venipuncture / Unknown 10/07/2024 8:13 PM EST 10/07/2024 8:28 PM EST Ramiro Heller MD LAB BLOOD ORDERABLE S Performing Organization Address City/[facility]/ZIP Co de Phone Number [facility] [address] [place] [address], [place] [phone] * Lipase (10/07/2024 8:13 PM EST) [facility] Lipase 33 13 - 75 unit/L LAB CHEMISTRY METHOD 10/07/2024 9:00 PM EST [facility] Blood Venous blood specimen / Unknown Venipuncture / Unknown 10/07/2024 8:13 PM EST 10/07/2024 8:28 PM EST Ramiro Heller MD LAB BLOOD ORDERABLE S Performing Organization Address [facility]/ZIP Co de Phone Number [facility] [address] [place] [address], [place] [phone] * (ABNORMAL) Comprehensive metabolic panel (10/07/2024 8:13 PM EST) [facility] Sodium 139 133 - 145 mmol/L LAB CHEMISTRY METHOD 10/07/2024 9:01 PM [facility] Potassium 3.9 3.5 - 5.5 mmol/L LAB CHEMISTRY METHOD 10/07/2024 9:01 PM [facility] Chloride 107 96 - 110 mmol/L LAB CHEMISTRY METHOD 10/07/2024 9:01 PM [facility] CO2 29 21 - 32 mmol/L LAB CHEMISTRY METHOD 10/07/2024 9:01 PM [facility] Anion Gap 3 3 - 11 LAB CHEMISTRY METHOD 10/07/2024 9:01 PM [facility] Glucose 157(H) 70 - 100 mg/dL LAB CHEMISTRY METHOD 10/07/2024 9:01 PM [facility] BUN 10 5 - 25 mg/dL LAB CHEMISTRY METHOD 10/07/2024 9:01 PM [facility] Creatinine 0.76 0.50 - 1.10 mg/dL LAB CHEMISTRY METHOD 10/07/2024 9:01 PM [facility] eGFR 83 >=60 mL/min/1. 73m2 LAB CHEMISTRY METHOD 10/07/2024 9:01 PM [facility] Comment:Calculation based on the??Chronic Kidney Disease Epidemiology Collaboration (CKD-EPI) equation refit??without adjustment for race. BUN/Creatinine Ratio 13.2 LAB CHEMISTRY METHOD 10/07/2024 9:01 PM [facility] Calcium 9.0 8.5 - 10.5 mg/dL LAB CHEMISTRY METHOD 10/07/2024 9:01 PM [facility] AST (SGOT) 36 10 - 42 unit/L LAB CHEMISTRY METHOD 10/07/2024 9:01 PM [facility] ALT (SGPT) 43 10 - 60 unit/L LAB CHEMISTRY METHOD 10/07/2024 9:01 PM [facility] Alkaline Phosphatase 96 42 - 121 unit/L LAB CHEMISTRY METHOD 10/07/2024 9:01 PM [facility] Total Protein 7.1 6.0 - 8.0 g/dL LAB CHEMISTRY METHOD 10/07/2024 9:01 PM [facility] Albumin 3.3 3.2 - 5.0 g/dL LAB CHEMISTRY METHOD 10/07/2024 9:01 PM [facility] Total Bilirubin 0.2 0.0 - 1.4 mg/dL LAB CHEMISTRY METHOD 10/07/2024 9:01 PM [facility] Blood Venous blood specimen / Unknown Venipuncture / Unknown 10/07/2024 8:13 PM EST 10/07/2024 8:28 PM EST Ramiro Heller MD LAB BLOOD ORDERABLE S [facility] [address] [place] [address], * ECG 12 lead (10/07/2024 7:47 PM EST) Ventricular Rate ECG 109 BPM GEMUSE Atrial Rate 109 BPM GEMUSE P-R Interval 138 ms GEMUSE QRS Duration 70 ms GEMUSE Q-T Interval 330 ms GEMUSE QTc 444 ms GEMUSE P Wave [place] 66 degrees GEMUSE R [place] 30 degrees GEMUSE T [place] 52 degrees GEMUSE ECG Interpretation Sinus tachycardia When compared with ECG of 11-JUL-2024 15:26, No significant change was found Confirmed by DANGELO CHOU ([id number]) on 10/08/2024 10:33:08 PM GEMUSE 10/07/2024 7:47 PM EST 10/08/2024 10:33 PM EST Ramiro Heller MD ECG ORDERABLES GEMUSE * ECG-Annotated (10/07/2024) Provider Onkiran WASHINGTON ECG ORDERABLES * Lipid panel (07/18/2024) LDL/HDL Ratio 3 0 - 4 Triglycerides 117 0 - 150 mg/dL Cholesterol 180 0 - 200 mg/dL HDL 64 40 mg/dL LDL Cholesterol 93 0 - 100 mg/dL Blood Venous blood specimen / Unknown Historical Provider LAB BLOOD ORDERAB LES * Falls Risk Assessment (12/30/2023) Falls Risk Assessment abstracted Historical Provider [facility] ALBA Garcia Depression Screening (12/30/2023) [facility] Depression Screening abstracted Historical Provider MD VAISHALI [place] * DXA BONE DENSITY STUDY 1+ SITS AXIAL SKEL (06/30/2023 1:38 PM EDT) Anatomical Region Laterality Modality Bone Densitometr y 09/26/2022 3:38 PM EDT Narrative 06/30/2023 4:27 PM EDT BONE DENSITY SCAN (DEXA): FINDINGS: Lumbar Spine T-score is -3.1. ?? (SD relative to 20-29 y/o adult) Z-score is -0.9. ??(SD relative to age matched peers) This is considered osteoporosis by WHO criteria. Left Hip T-score is -3.1. Z-score is -1.3. This is considered osteoporosis by WHO criteria. Comparison exam(s): 10/03/2014. ??Unable to assess for change in bone mineral density due to dissimilar scan methods. IMPRESSION: IMPRESSION: ?? Osteoporosis by WHO criteria. The [facility] Department of Internal Medicine recommends using National Osteoporosis Foundation (NOF) guidelines in treatment decisions related to osteoporosis. NOF guidelines suggest considering treatment for postmenopausal women and men aged 50 or older presenting with the following: History of hip or vertebral fracture. T-score = -2.5 (DXA) at the femoral neck, total hip, or spine, after appropriate evaluation to exclude secondary causes. Low bone mass (T-score between -1.0 and -2.5 at the femoral neck or spine) AND a 10-year probability of a hip fracture = 3% OR a 10-year probability of a major osteoporosis-related fracture = 20% based on the [place]-adapted WHO algorithm Please note that all treatment decisions require clinical judgment and consideration of individual patient factors, including patient preferences, co-morbidities, previous drug use, risk factors not captured in the FRAX model (e.g., frailty, falls, vitamin D deficiency, increased bone turnover, interval significant decline in bone density) and possible under- or over-estimation of fracture risk by FRAX. Optional alternative screening schedule based on ike Spicer., [facility] December 11, 2011 for patients with osteopenia (based on hip BMD T-score) is as follows: * ??advanced osteopenia (T scores -2.00 to -2.49), BMD testing every year * ??moderate osteopenia (T scores -1.50 to -1.99), BMD testing every 5 years mild osteopenia or normal BMD (T scores -1.50 and higher), BMD testing every 15 years Procedure Note Morena Gordon MD - 12/29/2023 BONE DENSITY SCAN (DEXA): FINDINGS: Lumbar Spine T-score is -3.1. (SD relative to 20-29 y/o adult) Z-score is -0.9. (SD relative to age matched peers) This is considered osteoporosis by WHO criteria. Left Hip T-score is -3.1. Z-score is -1.3. This is considered osteoporosis by WHO criteria. Comparison exam(s): 10/03/2014. Unable to assess for change in bonemineral density due to dissimilar scan methods. IMPRESSION: IMPRESSION: Osteoporosis by WHO criteria. The [facility] Department of Internal Medicine recommendsusing National Osteoporosis Foundation (NOF) guidelines in treatment decisions related toosteoporosis. NOF guidelines suggest considering treatment for postmenopausal women and menaged 50 or older presenting with the following: History of hip or vertebral fracture. T-score = -2.5 (DXA) at the femoral neck, total hip, or spine, afterappropriate evaluation to exclude secondary causes. Low bone mass (T-score between -1.0 and -2.5 at the femoral neck or spine)AND a 10-year probability of a hip fracture = 3% OR a 10-year probability of a majorosteoporosis-related fracture = 20% based on the [place]-adapted WHO algorithm Please note that all treatment decisions require clinical judgment andconsideration of individual patient factors, including patient preferences, co- morbidities,previous drug use, risk factors not captured in the FRAX model (e.g., frailty, falls, vitaminD deficiency, increased bone turnover, interval significant decline in bone density) andpossible under- or over-estimation of fracture risk by FRAX. Optional alternative screening schedule based on ike Spicer., [place] 2011 for patients with osteopenia (based on hip BMD T-score) is as follows: * advanced osteopenia (T scores -2.00 to -2.49), BMD testing every year * moderate osteopenia (T scores -1.50 to -1.99), BMD testing every 5years mild osteopenia or normal BMD (T scores -1.50 and higher), BMD testingevery 15 years Alejandra BAGLEY IMG DXA PROCE KATHERINE * JAYSHREE SCREENING DIGITAL (01/10/2022 3:48 PM EST) Anatomical Region Laterality Modality Mammography 01/10/2022 1:30 PM EST Narrative 01/10/2022 3:48 PM EST [facility] Diagnostic Imaging Department [address] [place] [address] Patient: ??MODESTA,MADSOODA ?/Age/Sex: 1950 - F Unit#: ??[id number] ? Location/Status: ??SPDIMAM/REG CLI ? Mnemonic/Ordering Site: ??DIGSC/SPMAM Ordering Physician: ??JOY MUIR DO Jayshree Screening Digital - 01/10/22 - 1403 EXAM: Jayshree Screening Digital EXAM DATE AND TIME: 01/10/2022 2:03 PM HISTORY: ??Screening. COMPARISON: ??07/02/20, 05/17/19, 05/13/18, 04/17/17 TECHNIQUE: CC and MLO views of both breasts were obtained using full field digital mammography. Bilateral digital breast tomosynthesis was performed in the MLO projection. Computer aided detection with the Sendoid.2-H was employed. TISSUE DENSITY: b. There are scattered areas of fibroglandular density. FINDINGS: A 4 mm asymmetry is seen in the posterior left breast, CC view only, just medial to the axis of the nipple. This may represent summation artifact. Spot compression and CC tomosynthesis views are recommended for further assessment. No grouped microcalcifications or areas of architectural distortion are seen. The skin and vascularity are unremarkable. IMPRESSION: 1. Left breast asymmetry, for which additional views are recommended. The patient will be called back. 2. Stable mammographic appearance of the right breast. No evidence of malignancy is seen. BI-RADS: ??Category 0: Incomplete - Need Additional Imaging Evaluation RECOMMENDATION(S): 1: Special mammographic view(s) needed LEFT [id number], [id number] 3340F, 7025F Dictating Physician: ??BELGICA MEDEROS MD Electronically Signed by: ??BELGICA MEDEROS MD Dic Date/Time: ??01/10/22 1546 Sign date/Time: ??01/10/22 1548 Procedure Note Belgica Mederos MD - 11/12/2022 [facility] Diagnostic Imaging Department [address] [place] [address] Patient: MODESTAAMBAR /Age/Sex: 1950 - 71 - F Unit#: [id number] Location/Status: SPDIMA/REG CLI Mnemonic/Ordering Site: [facility] Ordering Physician: JOY MUIR DO Jayshree Screening Digital - 01/10/22 - 1403 EXAM: Jayshree Screening Digital EXAM DATE AND TIME: 01/10/2022 2:03 PM HISTORY: Screening. COMPARISON: 07/02/20, 05/17/19, 05/13/18, 04/17/17 TECHNIQUE: CC and MLO views of both breasts were obtained using fullfield digital mammography. Bilateral digital breast tomosynthesis was performedin the MLO projection. Computer aided detection with the Sendoid.2-BioArrayas employed. TISSUE DENSITY: b. There are scattered areas of fibroglandular density. FINDINGS: A 4 mm asymmetry is seen in the posterior left breast, CC view only,just medial to the axis of the nipple. This may represent summation artifact.Spot compression and CC tomosynthesis views are recommended for furtherassessment. No grouped microcalcifications or areas of architectural distortion areseen. The skin and vascularity are unremarkable. IMPRESSION: 1. Left breast asymmetry, for which additional views are recommended.The patient will be called back. 2. Stable mammographic appearance of the right breast. No evidence of malignancy is seen. BI-RADS: Category 0: Incomplete - Need Additional Imaging Evaluation RECOMMENDATION(S): 1: Special mammographic view(s) needed LEFT [id number], 51804 3340F, 7025F Dictating Physician: BELGICA MEDEROS MD Electronically Signed by: BELGICA MEDEROS MD Dic Date/Time: 01/10/22 1546 Sign date/Time: 01/10/22 1548 Joy Muir DO IMG BI PROCEDURES * Colonoscopy (05/01/2014) Pathologist [facility] Colonoscopy no interpretation , abstracted Anatomical Region Laterality Modality Other Historical Provider MD VAISHALI [place] * Hepatitis C Screening (03/15/2009) Pathologist [facility] Hepatitis C Screening abstracted Historical Provider MD HEALTH MAINTENANC E from Last 3 Months or Most Recently Relevant to Health Maintenance Care Teams Master Welder Relationship Specialty Start Date End Date Russel Delvalle MD [address] [place] [address] PCP - General Internal Medicine 09/22/24
== END 2024-12-14 15:16 | disposition home or self-care (01) ==
PROVIDERS: PCP Physician Assistant Medical; Visit Provider Physician Assistant
DX: M25.551 Pain in right hip (principal)
CPT/HCPCS: 99024

== ENCOUNTER 2024-12-14 13:37 | Outpatient (REF) | payer MEDICARE, MEDICAID, SELFPAY ==
--- NOTE | ~2024-12-14 | XR_ITS ---
CLINICAL HISTORY: M53.3 - Sacrococcygeal disorders, not elsewhere classified 3 views sacroiliac joints Comparison: None Findings No acute fractures. There are changes of bilateral sacroiliitis more pronounced on the right. No significant degenerative change. No erosions. IMPRESSION: Bilateral sacroiliitis This document has been electronically signed by: Mitchell Rogers MD on 12/16/2024 04:55:39
--- OUTSIDE RECORDS SUMMARY | 2024-12-14 16:16 | XMS_ITS | Clinical Summary ---
Author Organization [facility] Address [address] [place] [address] Phone Care Team Providers Care Oyster Fisherman Name Role Phone Russel Delvalle MD Primary [...] no inciting event. Patient's son acted as pathology technologist, he states her main pain is in [...] uses meloxicam and Tylenol, has tried other osiq-erb-[id number] meds occasionally. 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 She denies any radiating pain down the leg, no numbness tingling in the feet or weakness. Patient had MRI lumbar spine 01/11/2024 at [facility] that shows mild L5- S1 DDD with [...] EST - 10/07/2024 11:41 PM EST Emergency [facility] Emergency [address] [place] [address] Ramiro Heller MD Chest pain, [...] PROCEDURE: HISTORICAL CHOLECYSTECTOMY ESOPHAGOGASTRODUODENOSCOPY 05/01/2014 N/A PROCEDURE: [place] ESOPHAGOGASTRODUODENOSCOPY TRANSORAL DIAGNOSTIC; COMMENT: normal CHOLECYSTECTOMY PROCEDURE: [place] LAPAROSCOPY SURG CHOLECYSTECTOMY Medical History Medical History [...] 1:15 PM EDT Office Visit Pulmonolgy - [place] [address] [place] [phone] Toan Bradford MD [address] [place] [address] Health Maintenance Due Date Last Done Comments [...] Signed Date: 10/08/2024 10:27 ET Workstation ID: [id number] Transcribed By: Self Edit Transcribed Date: 10/08/2024 [...] Signed Date: 10/08/2024 10:27 ET Workstation ID: [id number] Transcribed By: Self Edit Transcribed Date: 10/08/2024 [...] LAB CHEMISTRY METHOD 10/07/2024 10:16 PM EST [facility] Blood Venous blood specimen / Unknown Venipuncture / Unknown 10/07/2024 9:24 PM EST 10/07/2024 9:48 PM EST Narrative [facility] - 10/07/2024 10:16 PM EST High levels of biotin in samples may falsely decrease hsTroponin values. ??Use caution when interpreting hsTroponin results in patients taking biotin who exhibit renal impairment (eGFR <60) or in patients taking more than 20 mg/day of biotin. Ramiro Heller MD LAB BLOOD ORDERABLE S [facility] ([facility]) [facility] [address] [place] [address], * XR Chest 2 Views (10/07/2024 8:55 [...] Signed Date: 10/08/2024 08:22 ET Workstation ID: [id number] Transcribed By: Self Edit Transcribed Date: 10/08/2024 [...] Signed Date: 10/08/2024 08:22 ET Workstation ID: [id number] Transcribed By: Self Edit Transcribed Date: 10/08/2024 08:21 ET Ramiro Heller MD IMG XR PROCEDURES * (ABNORMAL) CBC auto differential (10/07/2024 8:13 PM EST) WBC 13.3(H) 4.8 - 10.8 K/mcL LAB HEMETOLOGY METHOD 10/07/2024 8:38 PM [facility] RBC 5.10(H) 3.80 - 4.80 M/mcL LAB HEMETOLOGY METHOD 10/07/2024 8:38 PM [facility] Hemoglobin 12.8 11.5 - 16.0 g/dL LAB HEMETOLOGY METHOD 10/07/2024 8:38 PM [facility] Hematocrit 41.6 35.0 - 47.0 % LAB HEMETOLOGY METHOD 10/07/2024 8:38 PM [facility] MCV 82.4 79.0 - 98.0 FL LAB HEMETOLOGY METHOD 10/07/2024 8:38 PM [facility] MCH 25.3(L) 27.0 - 32.0 pcg LAB HEMETOLOGY METHOD 10/07/2024 8:38 PM [facility] MCHC 30.8(L) 32.0 - 37.0 g/dL LAB HEMETOLOGY METHOD 10/07/2024 8:38 PM [facility] RDW 15.2(H) 11.0 - 15.0 % LAB HEMETOLOGY METHOD 10/07/2024 8:38 PM [facility] Platelets 298 130 - 400 K/mcL LAB HEMETOLOGY METHOD 10/07/2024 8:38 PM [facility] MPV 10.1 7.0 - 11.0 FL LAB HEMETOLOGY METHOD 10/07/2024 8:38 PM [facility] NRBC 0.0 <1.0 % LAB HEMETOLOGY METHOD 10/07/2024 8:38 PM [facility] NRBC Absolute 0.00 <0.10 K/mcL LAB HEMETOLOGY METHOD 10/07/2024 8:38 PM [facility] Neutrophils Relative 67.5 % LAB HEMETOLOGY METHOD 10/07/2024 8:38 PM [facility] Lymphocytes Relative 22.3 % LAB HEMETOLOGY METHOD 10/07/2024 8:38 PM [facility] Monocytes Relative 8.2 % LAB HEMETOLOGY METHOD 10/07/2024 8:38 PM [facility] Eosinophils Relative 1.0 % LAB HEMETOLOGY METHOD 10/07/2024 8:38 PM [facility] Basophils Relative 0.5 % LAB HEMETOLOGY METHOD 10/07/2024 8:38 PM [facility] Immature Granulocytes Relative 0.5 % LAB HEMETOLOGY METHOD 10/07/2024 8:38 PM [facility] Neutrophils Absolute 8.95(H) 1.50 - 7.00 K/mcL LAB HEMETOLOGY METHOD 10/07/2024 8:38 PM [facility] Lymphocytes Absolute 2.96 1.00 - 5.00 K/mcL LAB HEMETOLOGY METHOD 10/07/2024 8:38 PM EST [facility] Monocytes Absolute 1.09(H) 0.20 - 1.00 K/[facility] LAB HEMETOLOGY METHOD 10/07/2024 8:38 PM EST [facility]) [facility] Eosinophils Absolute 0.13 0.00 - 0.50 K/[facility] LAB HEMETOLOGY METHOD 10/07/2024 8:38 PM EST [facility] Basophils Absolute 0.07 0.00 - 0.20 K/[facility] LAB HEMETOLOGY METHOD 10/07/2024 8:38 PM EST [facility]) [facility] Immature Granulocytes Absolute 0.07(H) 0.00 - 0.03 K/[facility] LAB HEMETOLOGY METHOD 10/07/2024 8:38 PM EST [facility] Blood Venous blood specimen / Unknown Venipuncture / Unknown 10/07/2024 8:13 PM EST 10/07/2024 8:28 PM EST Ramiro Heller MD LAB BLOOD ORDERABLE S [facility] [address] [place] [address], * B-type natriuretic peptide (10/07/2024 8:13 PM EST) BNP 72 <=100 pcg/mL LAB CHEMISTRY METHOD 10/07/2024 9:07 PM EST [facility] Blood Venous blood specimen / Unknown Venipuncture / Unknown 10/07/2024 8:13 PM EST 10/07/2024 8:28 PM EST Ramiro Heller MD LAB BLOOD ORDERABLE S [facility] [address] [place] [address], * Magnesium (10/07/2024 8:13 PM EST) Magnesium 2.0 1.9 - 2.6 mg/dL LAB CHEMISTRY METHOD 10/07/2024 9:00 PM EST [facility] Blood Venous blood specimen / Unknown Venipuncture / Unknown 10/07/2024 8:13 PM EST 10/07/2024 8:28 PM EST Ramiro Heller MD LAB BLOOD ORDERABLE S Performing Organization Address City/[facility]/ZIP Co de Phone Number [facility] [address] [place] [address], [place] [phone] * Lipase (10/07/2024 8:13 PM EST) [facility] Lipase 33 13 - 75 unit/L LAB CHEMISTRY METHOD 10/07/2024 9:00 PM EST [facility] Blood Venous blood specimen / Unknown Venipuncture / Unknown 10/07/2024 8:13 PM EST 10/07/2024 8:28 PM EST Ramiro Heller MD LAB BLOOD ORDERABLE S Performing Organization Address [facility]/ZIP Co de Phone Number [facility] [address] [place] [address], [place] [phone] * (ABNORMAL) Comprehensive metabolic panel (10/07/2024 8:13 PM EST) [facility] Sodium 139 133 - 145 mmol/L LAB CHEMISTRY METHOD 10/07/2024 9:01 PM [facility] Potassium 3.9 3.5 - 5.5 mmol/L LAB CHEMISTRY METHOD 10/07/2024 9:01 PM [facility] Chloride 107 96 - 110 mmol/L LAB CHEMISTRY METHOD 10/07/2024 9:01 PM [facility] CO2 29 21 - 32 mmol/L LAB CHEMISTRY METHOD 10/07/2024 9:01 PM [facility] Anion Gap 3 3 - 11 LAB CHEMISTRY METHOD 10/07/2024 9:01 PM [facility] Glucose 157(H) 70 - 100 mg/dL LAB CHEMISTRY METHOD 10/07/2024 9:01 PM [facility] BUN 10 5 - 25 mg/dL LAB CHEMISTRY METHOD 10/07/2024 9:01 PM [facility] Creatinine 0.76 0.50 - 1.10 mg/dL LAB CHEMISTRY METHOD 10/07/2024 9:01 PM [facility] eGFR 83 >=60 mL/min/1. 73m2 LAB CHEMISTRY METHOD 10/07/2024 9:01 PM [facility] Comment:Calculation based on the??Chronic Kidney Disease Epidemiology Collaboration (CKD-EPI) equation refit??without adjustment for race. BUN/Creatinine Ratio 13.2 LAB CHEMISTRY METHOD 10/07/2024 9:01 PM [facility] Calcium 9.0 8.5 - 10.5 mg/dL LAB CHEMISTRY METHOD 10/07/2024 9:01 PM [facility] AST (SGOT) 36 10 - 42 unit/L LAB CHEMISTRY METHOD 10/07/2024 9:01 PM [facility] ALT (SGPT) 43 10 - 60 unit/L LAB CHEMISTRY METHOD 10/07/2024 9:01 PM [facility] Alkaline Phosphatase 96 42 - 121 unit/L LAB CHEMISTRY METHOD 10/07/2024 9:01 PM [facility] Total Protein 7.1 6.0 - 8.0 g/dL LAB CHEMISTRY METHOD 10/07/2024 9:01 PM [facility] Albumin 3.3 3.2 - 5.0 g/dL LAB CHEMISTRY METHOD 10/07/2024 9:01 PM [facility] Total Bilirubin 0.2 0.0 - 1.4 mg/dL LAB CHEMISTRY METHOD 10/07/2024 9:01 PM [facility] Blood Venous blood specimen / Unknown Venipuncture / Unknown 10/07/2024 8:13 PM EST 10/07/2024 8:28 PM EST Ramiro Heller MD LAB BLOOD ORDERABLE S [facility] [address] [place] [address], * ECG 12 lead (10/07/2024 7:47 PM EST) Ventricular Rate ECG 109 BPM GEMUSE Atrial Rate 109 BPM GEMUSE P-R Interval 138 ms GEMUSE QRS Duration 70 ms GEMUSE Q-T Interval 330 ms GEMUSE QTc 444 ms GEMUSE P Wave [place] 66 degrees GEMUSE R [place] 30 degrees GEMUSE T [place] 52 degrees GEMUSE ECG Interpretation Sinus tachycardia [...] (12/30/2023) Falls Risk Assessment abstracted Historical Provider [facility] ALBA Garcia Depression Screening (12/30/2023) [facility] Depression Screening abstracted Historical Provider MD VAISHALI [...] IMPRESSION: ?? Osteoporosis by WHO criteria. The [facility] Department of Internal Medicine recommends using National [...] alternative screening schedule based on ike Spicer., [facility] December 11, 2011 for patients with osteopenia [...] IMPRESSION: IMPRESSION: Osteoporosis by WHO criteria. The [facility] Department of Internal Medicine recommendsusing National Osteoporosis [...] PM EST Narrative 01/10/2022 3:48 PM EST [facility] Diagnostic Imaging Department [address] [place] [address] Patient: ??MODESTA,MADSOODA ?/Age/Sex: 1950 - F Unit#: ??[id number] ? Location/Status: ??SPDIMAM/REG CLI ? Mnemonic/Ordering Site: [...] MLO projection. Computer aided detection with the GrabCAD.2-H was employed. TISSUE DENSITY: b. There are [...] RECOMMENDATION(S): 1: Special mammographic view(s) needed LEFT 85188, 43572 3340F, 7025F Dictating Physician: ??BELGICA MEDEROS MD Electronically Signed by: ??BELGICA MEDEROS MD Dic Date/Time: ??01/10/22 1546 Sign date/Time: ??01/10/22 1548 Procedure Note Belgica Mederos MD - 11/12/2022 [facility] Diagnostic Imaging Department [address] [place] [address] Patient: MODESTAAMBAR /Age/Sex: 1950 - 71 - F Unit#: [id number] Location/Status: SPDIMA/REG CLI Mnemonic/Ordering Site: [facility] Ordering Physician: JOY MUIR DO Jayshree Screening Digital - 01/10/22 - 1403 EXAM: Jayshree Screening Digital EXAM DATE AND TIME: 01/10/2022 2:03 PM HISTORY: Screening. COMPARISON: 07/02/20, 05/17/19, 05/13/18, 04/17/17 TECHNIQUE: CC and MLO views of both breasts were obtained using fullfield digital mammography. Bilateral digital breast tomosynthesis was performedin the MLO projection. Computer aided detection with the GrabCAD.2-Smart Imaging Systemsas employed. TISSUE DENSITY: b. There are scattered [...] RECOMMENDATION(S): 1: Special mammographic view(s) needed LEFT 19724, 43949 3340F, 7025F Dictating Physician: BELGICA MEDEROS MD Electronically Signed by: BELGICA MEDEROS MD Dic Date/Time: 01/10/22 1546 Sign date/Time: 01/10/22 1548 Joy Muir DO IMG BI PROCEDURES * Colonoscopy (05/01/2014) Pathologist [facility] Colonoscopy no interpretation , abstracted Anatomical Region Laterality Modality Other Historical Provider MD VAISHALI [place] * Hepatitis C Screening (03/15/2009) Pathologist [facility] Hepatitis C Screening abstracted Historical Provider MD HEALTH MAINTENANC E from Last 3 Months or Most Recently Relevant to Health Maintenance Care Teams Oyster Fisherman Relationship Specialty Start Date End Date Russel Delvalle MD [address] [place] [address] PCP - General Internal Medicine 09/22/24
== END 2024-12-14 13:38 | disposition home or self-care (01) ==
LOC: HO.HOSX 13:37
PROVIDERS: PCP Physician Assistant Medical; Visit Provider Physician Assistant
DX: Z48.89 Encounter for other specified surgical aftercare (principal); M25.551 Pain in right hip; M53.3 Sacrococcygeal disorders, not elsewhere classified
CPT/HCPCS: 72200; 99212

== ENCOUNTER 2025-01-19 11:09 | Outpatient (REF) | payer MEDICARE, MEDICAID, SELFPAY ==
--- NOTE | ~2025-01-19 | XR_ITS ---
CLINICAL HISTORY: M25.551 - Pain in right hip 3 view, pelvis and right hip Comparison: None Findings: The bones are intact. No significant arthritic change. The soft tissues are unremarkable. IMPRESSION: No acute findings. This document has been electronically signed by: José Luis Dominguez MD on 01/20/2025 11:10:35
--- OUTSIDE RECORDS SUMMARY | 2025-01-20 13:05 | XMS_ITS | Clinical Summary ---
Author Organization [facility] Address [address] [place] [address] Phone Care Team Providers Care Assembly Loader Name Role Phone Russel Delvalle MD Primary [...] no inciting event. Patient's son acted as payable representative, he states her main pain is in [...] uses meloxicam and Tylenol, has tried other smki-tbt-mjdxbqs meds occasionally. 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 She denies any radiating pain down the leg, no numbness tingling in the feet or weakness. Patient had MRI lumbar spine 01/11/2024 at [facility] that shows mild L5- S1 DDD [...] PROCEDURE: HISTORICAL CHOLECYSTECTOMY ESOPHAGOGASTRODUODENOSCOPY 05/01/2014 N/A PROCEDURE: ND ESOPHAGOGASTRODUODENOSCOPY TRANSORAL DIAGNOSTIC; COMMENT: normal CHOLECYSTECTOMY PROCEDURE: ND LAPAROSCOPY SURG CHOLECYSTECTOMY Medical History Medical History [...] 1:30 PM EDT Office Visit Adult Medicine [facility] [address] [place] [address] Russel Delvalle MD [address] [place] [address] 03/08/2025 1:15 PM EDT Office Visit Pulmonolgy - [place] [address] [phone] Toan Bradford MD 175 [facility] [address] [place] [address] Health Maintenance Due Date Last Done Comments [...] EDT Age-related osteoporosis without current pathological fracture [facility] SCREENING DIGITAL Routine 01/10/2022 3:48 PM EST Encounter for screening mammogram for malignant neoplasm of breast COLONOSCOPY Routine 05/01/2014 HEPATITIS C SCREENING Routine 03/15/2009 from Last 3 Months or Most Recently Relevant to Health Maintenance Results * (ABNORMAL) Comprehensive metabolic panel (10/07/2024 8:13 PM EST) Sodium 139 133 - 145 mmol/L LAB CHEMISTRY METHOD 10/07/2024 9:01 PM [facility] Potassium 3.9 3.5 - 5.5 mmol/L LAB CHEMISTRY METHOD 10/07/2024 9:01 PM [facility] Chloride 107 96 - 110 mmol/L LAB CHEMISTRY METHOD 10/07/2024 9:01 PM [facility] CO2 29 21 - 32 mmol/L LAB CHEMISTRY METHOD 10/07/2024 9:01 PM [facility] Anion Gap 3 3 - 11 LAB CHEMISTRY METHOD 10/07/2024 9:01 PM [facility] Glucose 157(H) 70 - 100 mg/dL LAB CHEMISTRY METHOD 10/07/2024 9:01 PM [facility] BUN 10 5 - 25 mg/dL LAB CHEMISTRY METHOD 10/07/2024 9:01 PM [facility] Creatinine 0.76 0.50 - 1.10 mg/dL LAB CHEMISTRY METHOD 10/07/2024 9:01 PM [facility] eGFR 83 >=60 mL/min/1. 73m2 LAB CHEMISTRY METHOD 10/07/2024 9:01 PM [facility] Comment:Calculation based on the??Chronic Kidney Disease Epidemiology Collaboration (CKD-EPI) equation refit??without adjustment for race. BUN/Creatinine Ratio 13.2 LAB CHEMISTRY METHOD 10/07/2024 9:01 PM [facility] Calcium 9.0 8.5 - 10.5 mg/dL LAB CHEMISTRY METHOD 10/07/2024 9:01 PM [facility] AST (SGOT) 36 10 - 42 unit/L LAB CHEMISTRY METHOD 10/07/2024 9:01 PM [facility] ALT (SGPT) 43 10 - 60 unit/L LAB CHEMISTRY METHOD 10/07/2024 9:01 PM [facility] Alkaline Phosphatase 96 42 - 121 unit/L LAB CHEMISTRY METHOD 10/07/2024 9:01 PM [facility] Total Protein 7.1 6.0 - 8.0 g/dL LAB CHEMISTRY METHOD 10/07/2024 9:01 PM [facility] Albumin 3.3 3.2 - 5.0 g/dL LAB CHEMISTRY METHOD 10/07/2024 9:01 PM [facility] Total Bilirubin 0.2 0.0 - 1.4 mg/dL LAB CHEMISTRY METHOD 10/07/2024 9:01 PM [facility] Blood Venous blood specimen / Unknown Venipuncture / Unknown 10/07/2024 8:13 PM EST 10/07/2024 8:28 PM EST us Ramiro Heller MD LAB BLOOD ORDERABLES Final Result [facility] [address] [place] [address], [place] [phone] * Lipid panel (07/18/2024) Pathologist [facility] LDL/HDL Ratio 3 0 - 4 Triglycerides 117 0 - 150 mg/dL Cholesterol 180 0 - 200 mg/dL HDL 64 >=40 mg/dL LDL Cholesterol 93 0 - 100 mg/dL Blood Venous blood specimen / Unknown Historical Provider MD LAB BLOOD ORDERABLES Aminata l Result * Falls Risk Assessment (12/30/2023) Pathologist [facility] Falls Risk Assessment abstracted [facility] Provider MD HEALTH MAINTENANCE Final Result * Depression Screening (12/30/2023) Pathologist [facility] Depression Screening abstracted Historical Provider MD HEALTH [...] IMPRESSION: ?? Osteoporosis by WHO criteria. [facility] Department of Internal Medicine [...] based on ike Spicer., [facility] December 11, 2011 for patients with osteopenia [...] IMPRESSION: IMPRESSION: Osteoporosis by WHO criteria. [facility] Department of Internal Medicine [...] [facility] Diagnostic Imaging Department [address] [place] [address] Patient: ??MODESTA,ANTHONYSOODA ?/Age/Sex: 1950 - Unit#: ??[id number] ? Location/Status: ??SPDIMAM/REG CLI ? Mnemonic/Ordering Site: [...] MLO projection. Computer aided detection with the [employer]-Se[employer].2-BioMedFlex was employed. TISSUE DENSITY: b. There are [...] RECOMMENDATION(S): 1: Special mammographic view(s) needed LEFT 78527, 41223 3340F, 7025F Dictating Physician: ??BELGICA MEDEROS MD Electronically Signed by: ??BELGICA MEDEROS MD Dic Date/Time: ??01/10/22 1546 Sign date/Time: ??01/10/22 1545 Procedure Note Belgica Mederos MD - 11/12/2022 [facility] Diagnostic Imaging Department [address] [place], [place] [id number] Patient: AMBAR SALINAS /Age/Sex: 1950 - 71 - F Unit#: [id number] Location/Status: SPDIMAM/REG CLI Mnemonic/Ordering Site: [facility] Ordering Physician: JOY MUIR DO Jayshree Screening Digital - 01/10/22 - 1403 EXAM: Jayshree Screening Digital EXAM DATE AND TIME: 01/10/2022 2:03 PM HISTORY: Screening. COMPARISON: 07/02/20, 05/17/19, 05/13/18, 04/17/17 TECHNIQUE: CC and MLO views of both breasts were obtained using fullfield digital mammography. Bilateral digital breast tomosynthesis was performedin the MLO projection. Computer aided detection with the [employer] 7.2-Cele[employer]as employed. TISSUE DENSITY: b. There are scattered [...] RECOMMENDATION(S): 1: Special mammographic view(s) needed LEFT 64901, 21413 3340F, 7075F Dictating Physician: BELGICA MEDEROS MD Electronically Signed [...] [place] [id number] Care Teams Assembly Loader Relationship Specialty Start Date End Date Russel Delvalle MD [address] [place] [address] PCP - General Internal Medicine 09/22/24
== END 2025-01-19 11:10 | disposition home or self-care (01) ==
LOC: HO.HOSX 11:09
PROVIDERS: Visit Provider Physician Assistant
DX: M25.551 Pain in right hip (principal); M70.61 Trochanteric bursitis, right hip
CPT/HCPCS: 73502; 99202

== ENCOUNTER 2025-01-19 13:56 | Outpatient (AMB) | payer MEDICARE, MEDICAID, SELFPAY ==
--- NOTE | 2025-01-19 14:34 | A.OFFVIS_ITS ---
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 Patient reports her pain present shortly after having an SI joint injection. She has constant pain that is located at the lateral aspect of hip and travels down her leg. No numbness or tingling. No previous tx. No relief with Tylenol or Motrin. Field Merchandiser Required: Yes Field Merchandiser Services: Field Merchandiser Offered & Declined Accompanied by: Son Allergies No Known Allergies Allergy (Verified 01/19/25 14:35) Medication List - Last Reconciled 01/19/25 by Consuelo Coyle PA-C albuterol sulfate 90 mcg/actuation 2 puffs inhalation QID PRN albuterol sulfate 2.5 mg inhalation Q4H PRN amlodipine 5 mg PO DAILY aspirin 81 mg PO DAILY atorvastatin 10 mg PO BEDTIME fluticasone furoate-vilanterol 200-25 mcg/dose (Breo Ellipta) 2 ea inhalation DAILY loratadine 10 mg PO DAILY PRN meloxicam 7.5 mg PO DAILY PRN omeprazole 20 mg PO DAILY HPI HPI 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 She had an SI joint injection and shortly after notice pain along the lateral aspect of the hip which radiated down the leg. She denies numbness or tingling no burning sensation. She has pain that worsens when she lies on the right side. She has minimal discomfort with prolonged standing and walking. She has no groin pain. 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 Lumbar degenerative disc disease Spinal stenosis Dizziness Vitamin D deficiency Lumbar radiculopathy Personal history of tuberculosis GERD (gastroesophageal reflux disease) Prediabetes Hyperlipidemia Carotid atherosclerosis Elevated cholesterol HTN (hypertension) COPD (chronic obstructive pulmonary disease) Asthma Surgical History History of esophagogastroduodenoscopy (EGD) H/O colonoscopy History of tubal ligation History of cholecystectomy Social History Are you a primary child daycare worker to a significant other at home: No Do you presently have visiting nurse or other home services: No Patient Tobacco Use Status: Never used Tobacco Review of Systems Const All systems reviewed & are unremarkable except as noted in HPI and below Physical Exam Const General: cooperative and no acute distress Orientation/consciousness: patient oriented x3 Resp Effort & Inspection: normal respiratory effort and able to speak in complete sentences Cardio Peripheral pulses: Peripheral pulses 2+ throughout Neuro General: patient oriented x3 Extrem Other: Right hip normal to inspection. No pain with ROM of the hip. Pain along the greater trochanter. No pain with hip flexion or abduction.There is tenderness along the si joint, Negative SLR. NVI. Results Reviewed Results Reviewed: X-rays of the right hip obtained in the office today are negative for any acute or chronic abnormalities. Assessment & Plan Assessment & Plan (1) Trochanteric bursitis, right hip: Code(s): M70.61 - Trochanteric bursitis, right hip Category: Medical Plan: We discussed options which include PT, NSAIDs and injections. She will defer on the injection today and proceed with PT and NSAIDs. A prescription for Celebrex was sent to the pharmacy. If symptoms persist she will contact me for an injection, otherwise, prn. Orders: Orders XR hip RT min 2V Today M25.551 - Pain in right hip PT Evaluation and Treatment Today M70.61 - Trochanteric bursitis, right hip Medications: New celecoxib (Celebrex) 200 mg PO BID 60 caps 3RF 30 days Coding Level of Care Code New Pt Level 3 (42535) Complex EM visit Add On G2211 Diagnoses Trochanteric bursitis, right hip M70.61
--- OUTSIDE RECORDS SUMMARY | 2025-01-19 16:51 | XMS_ITS | Clinical Summary ---
Author Organization [facility] Address [address] [place] [address] Phone Care Team Providers Care Electrician Maintenance Name Role Phone Russel Delvalle MD Primary Care Provider Allergies Active Allergy Reactions Criticality Noted Date Comments Other 05/04/2015 Seasonal Runny nose , sneezing Medications multivit-min/ir on/folic acid/K (ADULTS MULTIVITAMIN ORAL) Take by mouth daily. Active meloxicam (MOBIC) 7.5 mg tablet Take 1 tablet (7.5 mg total) by mouth 1 (one) time each day. 09/22/20 24 Active albuterol 2.5 mg /3 mL (0.083 %) nebulizer solution Take 1 Vial by nebulization every 4 hours as needed for Wheezing for up to 90 days. Dx- j44.9 copd 09/07/20 24 Active alendronate (FOSAMAX) 70 mg tablet TAKE 1 TABLET BY MOUTH EVERY 7 DAYS FOR 360 DAYS. 08/24/20 24 Active atorvastatin (LIPITOR) 10 mg tablet Take 1 tablet (10 mg total) by mouth 1 (one) time each day. 07/19/20 24 Active amLODIPine (NORVASC) 5 mg tablet Take 1 tablet (5 mg total) by mouth 1 (one) time each day. 07/18/20 24 Active loratadine (CLARITIN) 10 mg tablet TAKE 1 TABLET BY MOUTH DAILY NEEDED FOR ALLERGIES. 11/25/19 24 Active aspirin 81 mg EC tablet Take 1 tablet (81 mg total) by mouth 1 (one) time each day. 07/06/20 23 Active omeprazole (PriLOSEC) [address] capsuleIndicati ons:Gastro-esop hageal reflux disease without esophagitis TAKE 1 CAPSULE BY MOUTH EVERY DAY 90 capsule 1 12/26/19 25 Active omeprazole (PriLOSEC) [address] capsule Take 1 capsule (20 mg total) by mouth 1 (one) time each day. 06/29/20 24 2024 Discontinued Active Problems Problem Noted Date Diagnosed Date Prediabetes 07/18/2024 Lumbar spondylosis 05/12/2024 Overview (11/03/2024): Last Assessment & Plan: Patient with 2-3-year history of low back (approximately L5-S1/sacral pain), no inciting event. Patient's son acted as community outreach director, he states her main pain is in [...] uses meloxicam and Tylenol, has tried other izyl-pcv-rwpkbpi meds occasionally. 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 She denies any radiating pain down the leg, no numbness tingling in the feet or weakness. Patient had MRI lumbar spine 01/11/2024 at [facility] that shows mild L5- S1 DDD [...] plaque with ? parenchymal opacity IMO update Immunizations Name Administration Dates Next Due Influenza trivalent, with pr eservative (Fluzone; Afluria) 6mo and older 09/19/2024 Surgical History Surgery Date Site/Laterality Comments TUBAL LIGATION PROCEDURE: HISTORICAL TUBAL LIGATION CHOLECYSTECTOMY PROCEDURE: HISTORICAL CHOLECYSTECTOMY ESOPHAGOGASTRODUODENOSCOPY 05/01/2014 N/A PROCEDURE: NE ESOPHAGOGASTRODUODENOSCOPY TRANSORAL DIAGNOSTIC; COMMENT: normal CHOLECYSTECTOMY PROCEDURE: NE LAPAROSCOPY SURG CHOLECYSTECTOMY Medical History Medical History [...] drink = 0.6 oz pur e alcohol) Comments Unknown Sex and Gender Information Value Date Recorded Sex Assigned at Not on file Legal Sex Female 11:00 AM EST Gender Identity Not on file Sexual Orientation Not on file Obstetrics History Last Filed [...] Care Team (Late st Contact Info) Description 02/02/2025 1:30 PM EDT Office Visit Adult Medicine [facility] [address] [place] [address] Russel Delvalle MD [address] [place] [address] 03/08/2025 1:15 PM EDT Office Visit Pulmonolgy - [place] [address] [phone] Toan Bradford MD 175 [facility] [address] [place] [address] Health Maintenance Due Date Last Done Comments Zoster Vaccines (1 of 2) 2002 RSV Immunization Patients 60+ Years Old (1 - Risk 60-74 years 1-dose series) 2012 Medicare Annual Wellness Visit 11/01/2022 Social Influencers of Health Screening 11/01/2022 Breast Cancer Screening 01/10/2024 01/10/20 22, 07/02/2020, 05/17/2019, Additional history exists Colorectal Cancer [...] age to complete this topic Pneumococcal Vaccine: 50+ Years Completed 10/05/2020, 09/27/2018, 01/21/2012 Influenza Vaccine [...] on patient's age to complete this topic Meningococcal B Vacine Aged Out No lo nger eligible based on patient's age to complete this topic RSV Immunization Patients Under 20 months Aged Out No longer eligible based on patient's age to complete this topic Varicella Vaccines Aged Out No longer eligible based on patient's age to complete this topic Procedures Procedure Name Priority Date/Time Associated Diagnosis Comments COMPREHENSIVE METABOLIC PANEL STAT 10/07/2024 8:13 PM EST LIPID PANEL Routine 07/18/2024 DEPRESSION SCREENING Routine 12/30/2023 FALLS RISK ASSESSMENT Routine 12/30/2023 DXA BONE DENSITY STUDY 1+ SITS AXIAL SKEL Routine 06/30/2023 1:38 PM EDT Age-related osteoporosis without current pathological fracture [facility] SCREENING DIGITAL Routine 01/10/2022 3:48 PM EST Encounter for screening mammogram for malignant neoplasm of breast COLONOSCOPY Routine 05/01/2014 HEPATITIS C SCREENING Routine 03/15/2009 from Last 3 Months or Most Recently Relevant to Health Maintenance Results * (ABNORMAL) Comprehensive metabolic panel (10/07/2024 8:13 PM EST) Sodium 139 133 - 145 mmol/L LAB CHEMISTRY METHOD 10/07/2024 9:01 PM [facility] Potassium 3.9 3.5 - 5.5 mmol/L LAB CHEMISTRY METHOD 10/07/2024 9:01 PM [facility] Chloride 107 96 - 110 mmol/L LAB CHEMISTRY METHOD 10/07/2024 9:01 PM [facility] CO2 29 21 - 32 mmol/L LAB CHEMISTRY METHOD 10/07/2024 9:01 PM [facility] Anion Gap 3 3 - 11 LAB CHEMISTRY METHOD 10/07/2024 9:01 PM [facility] Glucose 157(H) 70 - 100 mg/dL LAB CHEMISTRY METHOD 10/07/2024 9:01 PM [facility] BUN 10 5 - 25 mg/dL LAB CHEMISTRY METHOD 10/07/2024 9:01 PM [facility] Creatinine 0.76 0.50 - 1.10 mg/dL LAB CHEMISTRY METHOD 10/07/2024 9:01 PM [facility] eGFR 83 >=60 mL/min/1. 73m2 LAB CHEMISTRY METHOD 10/07/2024 9:01 PM [facility] Comment:Calculation based on the??Chronic Kidney Disease Epidemiology Collaboration (CKD-EPI) equation refit??without adjustment for race. BUN/Creatinine Ratio 13.2 LAB CHEMISTRY METHOD 10/07/2024 9:01 PM [facility] Calcium 9.0 8.5 - 10.5 mg/dL LAB CHEMISTRY METHOD 10/07/2024 9:01 PM [facility] AST (SGOT) 36 10 - 42 unit/L LAB CHEMISTRY METHOD 10/07/2024 9:01 PM [facility] ALT (SGPT) 43 10 - 60 unit/L LAB CHEMISTRY METHOD 10/07/2024 9:01 PM [facility] Alkaline Phosphatase 96 42 - 121 unit/L LAB CHEMISTRY METHOD 10/07/2024 9:01 PM [facility] Total Protein 7.1 6.0 - 8.0 g/dL LAB CHEMISTRY METHOD 10/07/2024 9:01 PM [facility] Albumin 3.3 3.2 - 5.0 g/dL LAB CHEMISTRY METHOD 10/07/2024 9:01 PM [facility] Total Bilirubin 0.2 0.0 - 1.4 mg/dL LAB CHEMISTRY METHOD 10/07/2024 9:01 PM [facility] Blood Venous blood specimen / Unknown Venipuncture / Unknown 10/07/2024 8:13 PM EST 10/07/2024 8:28 PM EST us Ramiro Heller MD LAB BLOOD ORDERABLES Final Result [facility] [address] [place] [address], [place] [phone] * Lipid panel (07/18/2024) Pathologist [facility] LDL/HDL Ratio 3 0 - 4 Triglycerides 117 0 - 150 mg/dL Cholesterol 180 0 - 200 mg/dL HDL 64 >=40 mg/dL LDL Cholesterol 93 0 - 100 mg/dL Blood Venous blood specimen / Unknown Historical Provider MD LAB BLOOD ORDERABLES Aminata l Result * Falls Risk Assessment (12/30/2023) Pathologist [facility] Falls Risk Assessment abstracted [facility] Provider MD HEALTH MAINTENANCE Final Result * Depression Screening (12/30/2023) Pathologist [facility] Depression Screening abstracted Historical Provider MD HEALTH MAINTENANCE Final Result * DXA BONE DENSITY STUDY 1+ SITS [...] IMPRESSION: ?? Osteoporosis by WHO criteria. [facility] Department of Internal Medicine recommends using [...] alternative screening schedule based on ike Spicer., [facility] December 11, 2011 for patients with osteopenia [...] IMPRESSION: IMPRESSION: Osteoporosis by WHO criteria. [facility] Department of Internal Medicine recommendsusing National [...] FRAX. Optional alternative screening schedule based on prince Spicer al., NEJMJanuary 2011 for patients with osteopenia (based on hip BMD T-score) is as follows: * advanced osteopenia (T scores -2.00 to -2.49), BMD testing every year * moderate osteopenia (T scores -1.50 to -1.99), BMD testing every 5years mild osteopenia or normal BMD (T scores -1.50 and higher), BMD testingevery 15 years us Alejandra BAGLEY IMG DXA PROCEDURES Fi nal Result * JAYSHREE SCREENING DIGITAL (01/10/2022 3:48 PM EST) Anatomical Region Laterality Modality Mammography 01/10/2022 1:30 PM EST Narrative 01/10/2022 3:48 PM EST [facility] Diagnostic Imaging Department [address] [place] [id number] Patient: ??MODESTA,ANTHONYSOODA ?/Age/Sex: 1950 - Unit#: ??[id number] ? Location/Status: ??SPDIMAM/REG CLI ? Mnemonic/Ordering Site: ??DIGSC/SPMAM Ordering Physician: ??IDATRACYELDONNORMA DO Jayshree Screening Digital - 01/10/22 - 1403 EXAM: Jayshree Screening Digital EXAM DATE AND TIME: 01/10/2022 2:03 PM HISTORY: ??Screening. COMPARISON: ??07/02/20, 05/17/19, 05/13/18, 04/17/17 TECHNIQUE: CC and MLO views of both breasts were obtained using full field digital mammography. Bilateral digital breast tomosynthesis was performed in the MLO projection. Computer aided detection with the [employer].2-Campanisto was employed. TISSUE DENSITY: b. There are [...] RECOMMENDATION(S): 1: Special mammographic view(s) needed LEFT 71930, 70700 3340F, 7025F Dictating Physician: ??BELGICA MEDEROS MD Electronically Signed by: ??BELGICA MEDEROS MD Dic Date/Time: ??01/10/22 1546 Sign date/Time: ??01/10/22 1547 Procedure Note Belgica Mederos MD - 11/12/2022 [facility] Diagnostic Imaging Department [address] [place], [place] [id number] Patient: AMBAR SALINAS /Age/Sex: 1950 - 71 - F Unit#: [id number] Location/Status: SPDIMAM/REG CLI Mnemonic[facility]Ordering Site: [facility] Ordering Physician: JOY MUIR DO Jayshree Screening Digital - 01/10/22 - 1403 EXAM: Jayshree Screening Digital EXAM DATE AND TIME: 01/10/2022 2:03 PM HISTORY: Screening. COMPARISON: 07/02/20, 05/17/19, 05/13/18, 04/17/17 TECHNIQUE: CC and MLO views of both breasts were obtained using fullfield digital mammography. Bilateral digital breast tomosynthesis was performedin the MLO projection. Computer aided detection with the Litbloc 7.2-Millennium MusicMediaas employed. TISSUE DENSITY: b. There are scattered [...] RECOMMENDATION(S): 1: Special mammographic view(s) needed LEFT [id number], 78502 3340F, 7031F Dictating Physician: BELGICA MEDEROS MD Electronically Signed by: BELGICA MEDEROS MD Dic Date/Time: 01/10/221545 Sign date/Time: 01/10/22 1548 Joy Muir DO IMG BI PROCEDURES Final Result * Colonoscopy (05/01/2014) Colonoscopy no interpretation , abstracted Anatomical Region Laterality Modality Other Historical Provider HEALTH MAINTENANCE Final Result * Hepatitis C Screening (03/15/2009) Hepatitis C Screening abstracted Historical Provider HEALTH MAINTENANCE Final Result from Last 3 Months or Most Recently Relevant to Health Maintenance [place] [id number] Care Teams Electrician Maintenance Relationship Specialty Start Date End Date Russel Delvalle MD [address] [place] [address] PCP - General Internal Medicine 09/22/24
== END 2025-01-19 14:58 | disposition home or self-care (01) ==
PROVIDERS: PCP Physician Assistant Medical; Visit Provider Physician Assistant
DX: M70.61 Trochanteric bursitis, right hip (principal)
CPT/HCPCS: 99203

== ENCOUNTER → 2025-01-19 14:20 | Outpatient (BNV) | payer MEDICARE, MEDICAID, SELFPAY | PROVIDERS: Visit Provider Radiology Diagnostic Radiology | DX: M25.551 Pain in right hip (principal) | CPT/HCPCS: 73502 ==

== ENCOUNTER 2025-02-07 11:42 | Outpatient (RCR) | payer MEDICARE, MEDICAID, SELFPAY ==
--- NOTE | 2025-02-07 14:18 | MHC.PT.EP ---
[facility] [place] [facility] [place] Office [place] Office [address] [place] [address] [phone] F: [phone] F: [phone] F: [phone] F: [phone] Physical Therapy Plan of Care Date of Evaluation: 02/07/25 Date of Surgery: 10/06/2024 Diagnosis: trochanteric bursitis, right hip Assessment: Patient is a 74 year old female with symptoms associated with R hip pain, denies any numbness or tingling. Patient's son was present at session to provide interpretation and will be at each visit. Patient had an SI fusion in Sep 2024, and since then has onset of R hip pain. Patient requires assistance with most ADLs and uses a cane for functional mobility. Patient presented with increased pain levels, decreased BLE hip strength/ROM, decreased functional mobility, and impaired gait pattern. Patient would be a good candidate for skilled PT 2x a week for 4 weeks to improve functional mobility, decrease pain, and improve overall conditioning. Physical therapy may include; STM, modalities, MHP/cryo as needed, LE stretching, strengthening, and overall functional mobility. Frequency and Duration: The patient will be seen 2x a week/ 4 weeks Short Term Goals: Pt will be Independent with HEP Pt will improve hip flexion ROM by at least 15 degrees Pt will improve hip flexion strength to at least 4-/5 Residential Goals: Pt will have improved RLE tissue length and hip ROM to be able to tolerate sitting at least 15 minutes without onset of R hip pain Pt will be able to have improved BLE strength to perform sit > stand with S to improve functional mobility Pt will have statistically significant increase in function evidenced by an increased score by at least a 9 on the LEFI Treatment Plan: Modalities to reduce pain, spasms and effusion. Manual therapy to restore motion and function. Therapeutic exercise to improve strength and flexibility. Neuromuscular re-education for posture and balance. Therapeutic activities to return to functional activities of daily living. Electronically signed by: Jessica Purcell, PT, DPT Please sign and return to therapist. Thank you for your referral.
--- NOTE | 2025-05-10 13:55 | MHC.PT.DC ---
[facility] [place] [facility] [place] [facility] [place] Office [address] [place] [address] [phone] F: [phone] F: [phone] F: [phone] F: [phone] Physical Therapy Discharge Report Diagnosis: trochanteric bursitis, right hip Date of Surgery: 10/06/2024 Date of Evaluation: 02/07/25 Date of Discharge: 05/10/25 Treatments to Date: 1 Cancellations to Date: No Shows to Date: Discharge Status: Patient Elected to Stop Discharge Summary: Pt was evaluated for skilled PT on 02/07/25. She attended the initial PT evaluation and did not schedule and treatment sessions. She is being D/C from skilled PT as she has not attended or called to schedule in > 30 days. Pt current level of function unknown at this time Electronically signed by: Jessica Purcell, PT, DPT Please sign and return to therapist. Thank you for your referral.
== END 2025-05-10 13:54 | disposition home or self-care (01) ==
LOC: HO.PT 11:42
PROVIDERS: PCP Internal Medicine; Visit Provider Physician Assistant
DX: M70.61 Trochanteric bursitis, right hip (principal)
CPT/HCPCS: 97162; 97530

== ENCOUNTER 2025-06-15 13:24 | Outpatient (AMB) | payer MEDICARE, MEDICAID, SELFPAY ==
--- NOTE | 2025-06-15 13:27 | A.OFFVIS_ITS ---
Intake Visit Reasons: OV-RIght hip pain Intake Note: Kedar is a 74 year old female who presents with her son for a follow up of trochanteric bursitis of right hip. At her last visit physical therapy was ordered and a prescription for celebrex was sent to her pharmacy, she was instructed to follow up as needed. Injection was offered and patient declined. Today patient reports therapy did not help at all and celebrex that was sent in does not really help. She would like to discuss injection. Retail Maintenance Technician Required: Yes Retail Maintenance Technician Services: Retail Maintenance Technician Offered & Declined Accompanied by: Son Allergies No Known Allergies Allergy (Verified 06/15/25 13:33) Medication List - Last Reconciled 06/15/25 by Consuelo Coyle PA-C albuterol sulfate 90 mcg/actuation 2 puffs inhalation QID PRN albuterol sulfate 2.5 mg inhalation Q4H PRN amlodipine 5 mg PO DAILY aspirin 81 mg PO DAILY atorvastatin 10 mg PO BEDTIME celecoxib 200 mg PO BID fluticasone furoate-vilanterol 200-25 mcg/dose (Breo Ellipta) 2 ea inhalation DAILY gabapentin 300 mg PO BID loratadine 10 mg PO DAILY PRN omeprazole 20 mg PO DAILY HPI HPI OV-RIght hip pain: Details: 74-year-old female returns to the office today for a follow-up right hip trochanteric bursitis. She has done physical therapy and states there has been no relief with this. She has also attempted Celebrex use without relief. She continues to have discomfort with daily activities and also sleeping on the right side. 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 Lumbar degenerative disc disease Spinal stenosis Dizziness Vitamin D deficiency Lumbar radiculopathy Personal history of tuberculosis GERD (gastroesophageal reflux disease) Prediabetes Hyperlipidemia Carotid atherosclerosis Elevated cholesterol HTN (hypertension) COPD (chronic obstructive pulmonary disease) Asthma Surgical History History of esophagogastroduodenoscopy (EGD) H/O colonoscopy History of tubal ligation History of cholecystectomy Social History Are you a primary personal care aide to a significant other at home: No Do you presently have visiting nurse or other home services: No Patient Tobacco Use Status: Never used Tobacco Review of Systems Const All systems reviewed & are unremarkable except as noted in HPI and below Physical Exam Const General: cooperative and no acute distress Orientation/consciousness: patient oriented x3 Resp Effort & Inspection: normal respiratory effort and able to speak in complete sentences Cardio Peripheral pulses: Peripheral pulses 2+ throughout Neuro General: patient oriented x3 Extrem Other: Right hip normal to inspection. No pain with ROM of the hip. Pain along the greater trochanter. No pain with hip flexion or abduction.There is tenderness along the si joint, Negative SLR. NVI. Office Procedures AMB Joint Injection/Aspiration Joint Injection/Aspiration Details: right hip bursa Prep: site was prepped using aseptic technique, ethochloride spray was applied and injection warnings given Injected: 80 mg of, DepoMedrol, with 8 mL of and 1% plain lidocaine Procedure: The patient tolerated the procedure well and there was some relief with the local anesthesia Coding 47861 - Glenohumeral/Tronchanteric Bursa/Intraarticular Procedure code (CPT) selection complete Assessment & Plan Assessment & Plan (1) Trochanteric bursitis, right hip: Code(s): M70.61 - Trochanteric bursitis, right hip Category: Medical Plan: We discussed options today which includes steroid injection of the right trochanteric bursa. I did stress the importance of continuing with that least some home exercises to strengthen the surrounding structures of the hip including the glute and lumbar/core region. They did express understanding. The patient will see us back as needed. Coding Level of Care Code Est Pt Level 3 (24803) Complex EM visit Add On G2211 Diagnoses Trochanteric bursitis, right hip M70.61 CPT Codes Coding - Joint 7: 33581 - Glenohumeral/Tronchanteric Bursa/Intraarticular ([id number])
--- OUTSIDE RECORDS SUMMARY | 2025-06-15 13:31 | XMS_ITS ---
Author Name [facility] Organization Unknown Care Team Organization Name Specialty Phone Email Start Date End Da te [facility] Bang Molina DO Primary Care 11/04/202306/23 [facility] Cruz Ha Primary Care 09/30/2022 07/11/2024
--- OUTSIDE RECORDS SUMMARY | 2025-06-15 13:31 | XMS_ITS | Clinical Summary ---
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 Active meloxicam (MOBIC) 7.5 mg tablet Take 1 tablet (7.5 mg total) by mouth 1 (one) time each day. 4 Active alendronate (FOSAMAX) 70 mg tablet TAKE 1 TABLET BY MOUTH EVERY 7 DAYS FOR 360 DAYS. 4 Active atorvastatin (LIPITOR) 10 mg tablet Take 1 tablet (10 mg total) by mouth 1 (one) time each day. 4 Active aspirin 81 mg EC tablet Take 1 tablet (81 mg total) by mouth 1 (one) time each day. 3 Active omeprazole (PriLOSEC) [address] capsuleIndicatio ns:Gastro-esopha geal reflux disease without esophagitis TAKE 1 CAPSULE BY MOUTH EVERY DAY 90 capsule 1 5 Active amLODIPine (NORVASC) 5 mg tabletIndication s:Essential (primary) hypertension Take 1 tablet (5 mg total) by mouth 1 (one) time each day. 90 tablet 1 5 Active Breo Ellipta 200-25 mcg/dose inhaler Inhale 1 puff by mouth 1 (one) time each day. 5 Active loratadine (CLARITIN) 10 mg tablet Take 1 tablet (10 mg total) by mouth at bedtime. 90 each 1 5 Active fexofenadine (CESILIA) 180 mg tablet Take 1 tablet (180 mg total) by mouth 1 (one) time each day in the morning. 90 tablet 1 5 Active albuterol 2.5 mg /3 mL (0.083 %) nebulizer solutionIndicati ons:Chronic obstructive pulmonary disease, unspecified COPD type (CMS/[facility] V24, CMS/[facility] V28) Take 3 mL (2.5 mg total) by nebulization every 8 (eight) hours if needed for wheezing. 75 mL 3 5 Active Ventolin HFA 90 mcg/actuation inhaler Inhale 2 puffs by mouth every 6 (six) hours if needed for wheezing. 18 g 3 5 026 Active Active Problems Problem Noted Date Diagnosed Date Hypercholesterolemia 02/02/2025 Prediabetes 07/18/2024 Lumbar spondylosis 05/12/2024 Overview (11/03/2024): Last Assessment & Plan: Patient with 2-3-year history of low back (approximately L5-S1/sacral pain), no inciting event. Patient's son acted as ada accommodation consultant, he states her main pain is in [...] uses meloxicam and Tylenol, has tried other [id number] meds occasionally. 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 She denies any radiating pain down the leg, no numbness tingling in the feet or weakness. Patient had MRI lumbar spine 01/11/2024 at [facility] that shows mild L5- S1 DDD with [...] rpt usg in one year Chronic obstructive pulmonar y disease ([facility] V24, [facility] V28) 05/24/2018 Osteoporosis 06/01/2017 Overview (11/03/2024): Fosamax 5 yrs Essential hypertension 04/11/2016 Cervicalgia 02/03/2007 Esophageal reflux 10/20/2006 Overview (11/03/2024): 05/01/14 dr march normal upper gi and normal colonosocpy Known medical problems 10/20/2006 Overview (11/03/2024): Lt apical pl plaque with ? parenchymal opacity IMO update Encounters Date Type Department Care Team Description 06/14/2025 Telephone Adult Medicine [address] [phone] Russel Delvalle MD Leg Pain; Foot Pain 04/04/2025 Telephone Adult Medicine [address] [phone] Russel Delvalle MD Forms/questionnaires ([facility] PCP Order) from Last 3 Months Immunizations Name Administration Dates Next Due Influenza trivalent, with pr eservative (Fluzone; Afluria) 6mo and older 09/19/2024 Surgical History Surgery Date Site/Laterality Comments TUBAL LIGATION PROCEDURE: HISTORICAL TUBAL LIGATION CHOLECYSTECTOMY PROCEDURE: HISTORICAL CHOLECYSTECTOMY ESOPHAGOGASTRODUODENOSCOPY 05/01/2014 N/A PROCEDURE: CA ESOPHAGOGASTRODUODENOSCOPY TRANSORAL DIAGNOSTIC; COMMENT: normal CHOLECYSTECTOMY PROCEDURE: CA LAPAROSCOPY SURG CHOLECYSTECTOMY Medical History Medical History Date Comments Essential hypertension 04/11/2016 DX:Essent ial hypertension Asthma-COPD overlap syndrome (CMS/HCC V24, CMS/HCC V28) 05/24/2018 DX:Asthma-COPD overlap syndr ome (HCC) Arthritis DX:Arthritis Irritable bowel syndrome without diarrhea DX:Irritable bowel syndrome without diarrhea Hypercholesterolemia 02/02/2025 Family History Medical History Relation Name Comments Breast cancer Neg Hx Colon cancer Neg Hx Ovarian cancer Neg Hx Relation Name Status Comments Brother Alive 4,helathy Father not known Mother Sister Alive 3,healthy Social History Tobacco Use Types Packs/Day Years Used Date Smoking Tobacco: Never Smokeless Tobacco: Never Tobacco Cessation:Counseling Given: Not Answered Alcohol Use Standard Drinks/Week Comments No 0 (1 standard drink = 0.6 oz pur e alcohol) Housing Instability Answer Date Recorde d Are you worried that in the next 2 months you may not have stable housing? No 02/02/2025 Food Access & Nutrition Answer Date Rec orded Do you have access to a vari ety of food including fruits and vegetables? Yes 02/02/2025 Access to Healthcare Answer Date Record ed Within the last 3 months, ho w many times did you visit the emergency department for your medical care? 0 02/02/2025 Health Literacy Answer Date Recorded How often do you need to hav e someone help you when you read instructions, pamphlets, or other written material from your doctor or pharmacy? Never 02/02/2025 Caregiver: How often do you need to have someone help you when you read instructions, pamphlets, or other written material from your doctor or pharmacy? Not on file 02/02/2025 Financial Risk Answer Date Recorded How hard is it for you to pa y for the very basics like food, housing, medical care, and air conditioning / heating? Not very hard 02/02/2025 Transportation Answer Date Recorded Has the lack of transportati on kept you from meetings, work, or from getting things needed for daily living? No Has the lack of transportati on kept you from medical appointments or from getting medications? No 02/02/2025 Social Isolation Answer Date Recorded How often do you feel lonely or isolated from th ose around you? Never 02/02/2025 Food Risk Answer Date Recorded Within the past 12 months we worried whether our food would run out before we got money to buy more. Never true 02/02/2025 Within the past 12 months th e food we bought just didn't last and we didn't have money to get more. Never true 02/02/2025 Dependent Care Answer Date Recorded Do you need help finding or paying for care for your loved ones. For example, childrens club attendant or elderly care for an older adult? No 02/02/2025 Education Answer Date Recorded Do you think completing more education or training, like finishing a GED, going to college, or learning a trade, would be helpful for you? No 02/02/2025 Employment and Income Answer Date Recor ded During the last four weeks, have you been actively looking for work? No 02/02/2025 Living Situation Answer Date Recorded What is your living situation? 0 02/02/2025 Comments Unknown Sex and Gender Information Value Date Recorded Sex Assigned at Not on file Legal Sex Female 11:00 AM EST Gender Identity Not on file Sexual Orientation Not on file Obstetrics History Last Filed Vital Signs Vital Sign Reading Time Taken Comments Blood Pressure 117/65 03/01/2025 5:00 PM EDT Pulse 102 03/01/2025 5:00 PM EDT Temperature 36.8 C (98.3 F) 03/01/2025 5:00 PM EDT Respiratory Rate 15 02/02/2025 1:46 PM EDT Oxygen Saturation 96% 03/01/2025 5:00 PM EDT Inhaled Oxygen Concentration - - Weight 71.8 kg (158 lb 6.4 oz) 02/02/2025 1:46 P M EDT Height 162.6 cm (5' 4 ) 02/02/2025 1:46 PM EDT Body Mass Index 27.19 02/02/2025 1:46 PM EDT Plan of Treatment Upcoming Encounters Date Type Department Care Team (Late st Contact Info) Description 08/07/2025 2:30 PM EDT Office Visit Adult Medicine [address] [phone] Russel Delvalle MD [address] [place] [address] 09/13/2025 9:00 AM EDT Office Visit Adult [address] [phone] Russel Delvalle MD [address] [place] [address] 09/23/2025 12:30 PM EDT Appointment Radiology Department - [address] [phone] Health Maintenance Due Date Last Done Comments Zoster Vaccines (1 of 2) 2002 RSV Immunization Adult Patients (1 - Risk 60-74 years 1-dose series) 2012 Medicare Annual Wellness Visit 11/01/2022 Breast Cancer Screening 01/10/2024 01/10/20, 07/02/2020, 05/17/2019, Additional history exists COVID-19 Vaccine ( season) 2024 12/04/2021, 04/18/2021, 03/29/2021, Additional history exists Influenza Vaccine (#1) 2025 , 09/07/2023, 09/26/2022, Additional history exists Falls Risk Assessment 02/02/2026 02/02/2025, 024 Social Influencers of Health Screening 02/02/2026 02/02/2025 Hypertension/CHF/CAD Annual BMP Blood Test 03/20/2026 03/20/2025, 10/07/2024, 07/18/2024, Additional history exists Colorectal Cancer Screening: FIT-DNA (Cologuard) 02/11/2028 02/10/2025, 02/10/2025, 02/10/2025 Cholesterol Screening (Lipid Panel) 03/20/2030 03/20/2025, 07/18/2024, 07/18/2024 DTaP,Tdap,and Td Vaccines (3 - Td or Tdap) 10/05/2030 10/05/2020, 08/28/2010 Osteoporosis Screening (Bone Density Screening) 06/30/2033 06/30/2023, 07/23/2017 Hepatitis C Screening Completed 03/15/2009 Colorectal Cancer Screening: Colonoscopy Discontinued 05/01/2014 Meningococcal ACWY Vaccine Aged Out 01/01/2018 N o longer eligible based on patient's age to complete this topic Pneumococcal Vaccine: 50+ Years Completed 10/05/2020, 09/27/2018, 01/21/2012 Depression Screening Completed 02/02/2025, 12/30/19 24 HIB Vaccines Aged Out No longer eligi [...] age to complete this topic Meningococcal B Vaccine Aged Out No l onger eligible based on patient's age to complete this topic RSV Immunization Patients Under 20 months Aged Out No longer eligible based on patient's age to complete this topic Varicella Vaccines Aged Out No longer eligible based on patient's age to complete this topic Procedures Procedure Name Priority Date/Time Associated Diagnosis Comments CBC WITH AUTO DIFFERENTIAL Routine 03/20/2025 9:14 AM EDT Essential (primary) hypertension Chronic obstructive pulmonary disease, unspecified COPD type ([facility]/HCC V24, [facility] V28) Gastroesophageal reflux disease without esophagitis Age-related osteoporosis without current pathological fracture Prediabetes Vitamin D deficiency Encounter for screening for malignant neoplasm of colon CBC AND DIFFERENTIAL Routine 03/20/2025 9:14 AM EDT Essential (primary) hypertension Chronic obstructive pulmonary disease, unspecified COPD type (CMS/HCC V24, CMS/HCC V28) Gastroesophageal reflux disease without esophagitis Age-related osteoporosis without current pathological fracture Prediabetes Vitamin D deficiency Encounter for screening for malignant neoplasm of colon COMPREHENSIVE METABOLIC PANEL Routine 03/20/2025 9:14 AM EDT Age-related osteoporosis without current pathological fracture HEMOGLOBIN A1C Routine 03/20/2025 9:14 AM EDT Prediabetes LIPID PANEL WITH REFLEX TO DIRECT LDL Routine 03/20/2025 9:14 AM EDT Essential (primary) hypertension VITAMIN D 25 HYDROXY Routine 03/20/2025 9:14 AM EDT Age-related osteoporosis without current pathological fracture Vitamin D deficiency LAB COLOGUARD COLON CANCER SCREEN Routine 02/10/2025 4:05 PM EDT Encounter for screening for malignant neoplasm of colon DEPRESSION SCREENING Routine 12/30/2023 FALLS RISK ASSESSMENT Routine 12/30/2023 DXA BONE DENSITY STUDY 1+ SITS AXIAL SKEL Routine 06/30/2023 1:38 PM EDT Age-related osteoporosis without current pathological fracture [facility] SCREENING DIGITAL Routine 01/10/2022 3:48 PM EST Encounter for screening mammogram for malignant neoplasm of breast COLONOSCOPY Routine 05/01/2014 HEPATITIS C SCREENING Routine 03/15/2009 from Last 3 Months or Most Recently Relevant to Health Maintenance Results * Lipid panel with reflex to direct LDL (03/20/2025 9:14 AM EDT) [facility] Cholesterol 174 0 - 200 mg/dL LAB CHEMISTRY METHOD 03/20/2025 4:19 PM EDT [facility] Triglycerides 85 0 - 150 mg/dL LAB CHEMISTRY METHOD 03/20/2025 4:19 PM EDT [facility] HDL 70 >=40 mg/dL LAB CHEMISTRY METHOD 03/20/2025 4:19 PM EDT [facility] LDL Calculated 87 0 - 100 mg/dL LAB CHEMISTRY METHOD 03/20/2025 4:19 PM EDT [facility] VLDL Cholesterol Hola 17 mg/dL LAB CHEMISTRY METHOD 03/20/2025 4:19 PM EDT [facility] Non HDL Chol. (LDL+VLDL) 104 <145 mg/dL LAB CHEMISTRY METHOD 03/20/2025 4:19 PM EDT [facility] Chol/HDL Ratio 2.5 0.0 - 4.4 LAB CHEMISTRY METHOD 03/20/2025 4:19 PM EDT [facility] Blood Venous blood specimen / Unknown Venipuncture / Unknown 03/20/2025 9:14 AM EDT 03/20/2025 9:14 AM EDT us Russel Delvalle MD LAB BLOOD ORDERABLES F inal Result [facility] [address] [place] [address], [place] [phone] * (ABNORMAL) CBC auto differential (03/20/2025 9:14 AM EDT) WBC 8.7 4.8 - 10.8 K/[facility] LAB HEMETOLOGY METHOD 03/20/2025 12:39 PM EDT [facility] RBC 5.50(H) 3.80 - 4.80 M/mcL LAB HEMETOLOGY METHOD 03/20/2025 12:39 PM EDT [facility] Hemoglobin 13.8 11.5 - 16.0 g/dL LAB HEMETOLOGY METHOD 03/20/2025 12:39 PM EDT [facility] Hematocrit 45.1 35.0 - 47.0 % LAB HEMETOLOGY METHOD 03/20/2025 12:39 PM [facility] MCV 81.9 79.0 - 98.0 FL LAB HEMETOLOGY METHOD 03/20/2025 12:39 PM [facility] MCH 25.0(L) 27.0 - 32.0 pcg LAB HEMETOLOGY METHOD 03/20/2025 12:39 PM [facility] MCHC 30.6(L) 32.0 - 37.0 g/dL LAB HEMETOLOGY METHOD 03/20/2025 12:39 PM [facility] RDW 15.1(H) 11.0 - 15.0 % LAB HEMETOLOGY METHOD 03/20/2025 12:39 PM [facility] Platelets 338 130 - 400 K/mcL LAB HEMETOLOGY METHOD 03/20/2025 12:39 PM [facility] MPV 10.5 7.0 - 11.0 FL LAB HEMETOLOGY METHOD 03/20/2025 12:39 PM [facility] NRBC 0.0 <1.0 % LAB HEMETOLOGY METHOD 03/20/2025 12:39 PM [facility] NRBC Absolute 0.00 <0.10 K/mcL LAB HEMETOLOGY METHOD 03/20/2025 12:39 PM [facility] Neutrophils Relative 60.3 % LAB HEMETOLOGY METHOD 03/20/2025 12:39 PM [facility] Lymphocytes Relative 26.1 % LAB HEMETOLOGY METHOD 03/20/2025 12:39 PM [facility] Monocytes Relative 9.8 % LAB HEMETOLOGY METHOD 03/20/2025 12:39 PM [facility] Eosinophils Relative 2.7 % LAB HEMETOLOGY METHOD 03/20/2025 12:39 PM EDT [facility] Basophils Relative 0.8 % LAB HEMETOLOGY METHOD 03/20/2025 12:39 PM EDT [facility] Immature Granulocytes Relative 0.3 % LAB [facility]EMETOLOGY [facility]/20[facility]2025 12:[facility] Neutrophils Absolute 5.21 1.50 - 7.00 K/mcL LAB HEMETOLOGY METHOD 03/20/2025 12:39 PM EDT [facility] Lymphocytes Absolute 2.26 1.00 - 5.00 K/mcL LAB HEMETOLOGY METHOD 03/20/2025 12:39 [facility] Monocytes Absolute 0.85 0.20 - 1.00 K/mcL LAB HEMETOLOGY METHOD 03/20/2025 12:39 PM [facility] Eosinophils Absolute 0.23 0.00 - 0.50 K/mcL LAB HEMETOLOGY METHOD 03/20/2025 12:39 PM [facility] Basophils Absolute 0.07 0.00 - 0.20 K/mcL LAB HEMETOLOGY METHOD 03/20/2025 12:39 PM [facility] Immature Granulocytes Absolute 0.03 0.00 - 0.03 K/mcL LAB HEMETOLOGY METHOD 03/20/2025 12:39 PM [facility] Blood Venous blood specimen / Unknown Venipuncture / Unknown 03/20/2025 9:14 AM EDT 03/20/2025 9:14 AM EDT us Russel Delvalle MD LAB BLOOD ORDERABLES F inal Result [facility] [address] [place] [address], * Vitamin D 25 hydroxy (03/20/2025 9:14 AM EDT) Vit D, 25-Hydroxy 44.8 30.0 - 80.0 ng/mL LAB CHEMISTRY METHOD 03/20/2025 5:16 PM EDT [facility] Blood Venous blood specimen / Unknown Venipuncture / Unknown 03/20/2025 9:14 AM EDT 03/20/2025 9:14 AM EDT us Russel Delvalle MD LAB BLOOD ORDERABLES F inal Result Performing Organization Address [facility] de Phone Number [facility] [address] [place] [address], [place] [phone] * Hemoglobin A1c (03/20/2025 9:14 AM EDT) Pathologist [facility] Hemoglobin A1C 6.2 <6.5 % LAB CHEMISTRY METHOD 03/20/2025 11:20 PM EDT [facility] Mean Bld Glu Estim. 131 mg/dL LAB CHEMISTRY METHOD 03/20/2025 11:20 PM EDT [facility] Blood Venous blood specimen / Unknown Venipuncture / Unknown 03/20/2025 9:14 AM EDT 03/20/2025 9:14 AM EDT us Russel Delvalle MD LAB BLOOD ORDERABLES F inal Result Performing Organization Address [facility]/ZIP Co de Phone Number [facility] [address] [place] [address], [place] [phone] * (ABNORMAL) Comprehensive metabolic panel (03/20/2025 9:14 AM EDT) Pathologist [facility] Sodium 141 133 - 145 mmol/L LAB CHEMISTRY METHOD 03/20/2025 4:19 PM EDT [facility] Potassium 4.0 3.5 - 5.5 mmol/L LAB CHEMISTRY METHOD 03/20/2025 4:19 PM EDT [facility] Chloride 106 96 - 110 mmol/L LAB CHEMISTRY METHOD 03/20/2025 4:19 PM [facility] CO2 31 21 - 32 mmol/L LAB CHEMISTRY METHOD 03/20/2025 4:19 PM [facility] Anion Gap 4 3 - 11 LAB CHEMISTRY METHOD 03/20/2025 4:19 PM [facility] Glucose 107(H) 70 - 100 mg/dL LAB CHEMISTRY METHOD 03/20/2025 4:19 PM [facility] BUN 11 5 - 25 mg/dL LAB CHEMISTRY METHOD 03/20/2025 4:19 PM [facility] Creatinine 0.65 0.50 - 1.10 mg/dL LAB CHEMISTRY METHOD 03/20/2025 4:19 PM [facility] eGFR 94 >=60 mL/min/1. 73m2 LAB CHEMISTRY METHOD 03/20/2025 4:19 PM [facility] Comment:Calculation based on the Chronic Kidney Disease Epidemiology Collaboration (CKD-EPI) equation refit without adjustment for race. BUN/Creatinine Ratio 16.9 LAB CHEMISTRY METHOD 03/20/2025 4:19 PM [facility] Calcium 8.8 8.5 - 10.5 mg/dL LAB CHEMISTRY METHOD 03/20/2025 4:19 PM [facility] AST (SGOT) 15 10 - 42 unit/L LAB CHEMISTRY METHOD 03/20/2025 4:19 PM [facility] ALT (SGPT) 24 10 - 60 unit/L LAB CHEMISTRY METHOD 03/20/2025 4:19 PM [facility] Alkaline Phosphatase 118 42 - 121 unit/L LAB CHEMISTRY METHOD 03/20/2025 4:19 PM [facility] Total Protein 7.5 6.0 - 8.0 g/dL LAB CHEMISTRY METHOD 03/20/2025 4:19 PM [facility] Albumin 3.2 3.2 - 5.0 g/dL LAB CHEMISTRY METHOD 03/20/2025 4:19 PM EDT [facility] Total Bilirubin 0.4 0.0 - 1.4 mg/dL LAB CHEMISTRY METHOD 03/20/2025 4:19 PM EDT [facility] Blood Venous blood specimen / Unknown Venipuncture / Unknown 03/20/2025 9:14 AM EDT 03/20/2025 9:14 AM EDT us Russel Delvalle MD LAB BLOOD ORDERABLES F inal Result [facility] [address] [place] [address], * Cologuard?? colon cancer screening (02/10/2025 4:05 PM EDT) COLOGUARD Negative Negative [facility] Comment: NEGATIVE TEST RESULT. A negative Cologuard result indicates a low likelihood that a colorectal cancer (CRC) or advanced adenoma (adenomatous polyps with more advanced pre-malignant features) is present. The chance that a person with a negative Cologuard test has a colorectal cancer is less than 1 in 1500 (negative predictive value >99.9%) or has an advanced adenoma is less than 5.3% (negative predictive value 94.7%). These data are based on a prospective cross-sectional study of 10,000 individuals at average risk for colorectal cancer who were screened with both Cologuard and colonoscopy. (Norma Alejandro al, N Engl J Med 2014;370(14):0910-5207) The normal value (reference range) for this assay is negative. COLOGUARD RE-SCREENING RECOMMENDATION: Periodic colorectal cancer screening is an important part of preventive healthcare for asymptomatic individuals at average risk for colorectal cancer. Following a negative Cologuard result, the [place] [employer] and U.S. Multi-Society Task Force screening guidelines recommend a Cologuard re-screening interval of 3 years. References: [place] [employer] Guideline for Colorectal Cancer Screening: https://www.cancer.org/cancer/gsqoo-zeqzxj-suzhkw/phdmpjhlj-jccieawbh-njbjrwx/ac s-rec ommendations.html.; Alfonso DK, Dalton CR, Keri FongK, Colorectal Cancer Screening: Recommendations for Physicians and Patients from the U.S. Multi-Society Task Force on Colorectal Cancer Screening , Am J Gastroenterology 2017; 112:1946-1576. TEST DESCRIPTION: Composite algorithmic analysis of stool DNA-biomarkers with hemoglobin immunoassay. Quantitative values of individual biomarkers are not reportable and are not associated with individual biomarker result reference ranges. Cologuard is intended for colorectal cancer screening of adults of either sex, 45 years or older, who are at average-risk for colorectal cancer (CRC). Cologuard has been approved for use by the U.S. FDA. The performance of Cologuard was established in a cross sectional study of average-risk adults aged 50-84. Cologuard performance in patients ages 45 to 49 years was estimated by sub-group analysis of near-age groups. Colonoscopies performed for a positive result may find as the most clinically significant lesion: colorectal cancer [4.0%], advanced adenoma (including sessile serrated polyps greater than or equal to 1cm diameter) [20%] or non- advanced adenoma [31%]; or no colorectal neoplasia [45%]. These estimates are derived from a prospective cross-sectional screening study of 10,000 individuals at average risk for colorectal cancer who were screened with both Cologuard and colonoscopy. (Norma Alejandro al, N Engl J Med 2014;370(14):4939-5695.) Cologuard may produce a false negative or false positive result (no colorectal cancer or precancerous polyp present at colonoscopy follow up). A negative Cologuard test result does not guarantee the absence of CRC or advanced adenoma (pre-cancer). The current Cologuard screening interval is every 3 years. ([place] [employer] and U.S. Multi-Society Task Force). Cologuard performance data in a 10,000 patient pivotal study using colonoscopy as the reference method can be accessed at the following location: [email or web address]/results. Additional description of the Cologuard test process, warnings and precautions can be found at [email or web address].[email or web address]. Stool 02/10/2025 4:05 PM EDT 02/11/2025 7:22 AM EDT Result [facility] Russel Delvalle MD LAB MOLECULAR DIAGNOST ICS ORDERABLES Final Result [email or web address] - [address] [place] [address] [facility] [address] [place] [address] * Falls Risk Assessment (12/30/2023) Falls Risk Assessment abstracted Historical Provider HEALTH MAINTENANCE Final Result * Depression Screening (12/30/2023) Pathologist [facility] Depression Screening abstracted Historical Provider HEALTH MAINTENANCE Final Result * DXA BONE [...] 10/03/2014. Unable to assess for change in bone mineral density due to dissimilar scan methods. IMPRESSION: IMPRESSION: Osteoporosis by WHO criteria. [facility] Department of Internal Medicine recommends [...] alternative screening schedule based on ike Spicer., [facility] December 11, 2011 for [...] IMPRESSION: IMPRESSION: Osteoporosis by WHO criteria. [facility] Department of Internal Medicine recommendsusing [...] alternative screening schedule based on ike Spicer., NEMJanuary 2011 for patients with osteopenia (based on hip BMD T-score) is as follows: * advanced osteopenia (T scores -2.00 to -2.49), BMD testing every year * moderate osteopenia (T scores -1.50 to -1.99), BMD testing every 5years mild osteopenia or normal BMD (T scores -1.50 and higher), BMD testingevery 15 years Alejandra BAGLEY IM DXA PROCEDURES Fi nal Result * JAYSHREE SCREENING DIGITAL (01/10/2022 3:48 PM EST) Anatomical Region Laterality Modality Mammography 01/10/2022 1:30 PM EST Narrative 01/10/2022 3:48 PM EST [facility] Diagnostic Imaging Department [address] [place] [address] Patient: AMBAR SALINAS /Age/Sex: 1950 - - F Unit#: [id number] Location/Status: [facility]/REG CLI Mnemonic/Ordering Site: [facility] Ordering Physician: JOY MUIR DO Jayshree Screening Digital - 01/10/22 - 1403 EXAM: Jayshree Screening Digital EXAM DATE AND TIME: 01/10/2022 2:03 PM HISTORY: Screening. COMPARISON: 07/02/20, 05/17/19, 05/13/18, 04/17/17 TECHNIQUE: CC and MLO views of both breasts were obtained using full field digital mammography. Bilateral digital breast tomosynthesis was performed in the MLO projection. 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 TISSUE DENSITY: b. There are [...] RECOMMENDATION(S): 1: Special mammographic view(s) needed LEFT 51838, [id number] 3340F, 7025F Dictating Physician: BELGICA MEDEROS MD Electronically Signed by: BELGICA MEDEROS MD Dic Date/Time: 01/10/22 1546 Sign date/Time: 01/10/22 1548 Procedure Note Belgica Mederos MD - 11/12/2022 [facility] Diagnostic Imaging Department [address] [place] [address] [id number] Patient: AMBAR SALINAS /Age/Sex: 1950 - 71 - F Unit#: [id number] Location/Status: SPDIMAM/REG CLI Mnemonic/Ordering Site: [facility] Ordering Physician: JOY MUIR DO Jayshree Screening Digital - 01/10/22 - 1403 EXAM: Jayshree Screening Digital EXAM DATE AND TIME: 01/10/2022 2:03 PM HISTORY: Screening. COMPARISON: 07/02/20, 05/17/19, 05/13/18, 04/17/17 TECHNIQUE: CC and MLO views of both breasts were obtained using fullfield digital mammography. Bilateral digital breast tomosynthesis was performedin the MLO projection. Computer aided detection with the [employer] employed. TISSUE DENSITY: b. There are scattered [...] RECOMMENDATION(S): 1: Special mammographic view(s) needed LEFT 90350, [id number] 3340F, 7025F Dictating Physician: BELGICA MEDEROS MD Electronically Signed by: BELGICA MEDEROS MD Dic Date/Time: 01/10/22 154 Sign date/Time: 01/10/22 9078 Joy Muir DO IMG BI PROCEDURES Final Result * Colonoscopy (05/01/2014) Colonoscopy no interpretation , abstracted Anatomical Region Laterality Modality Other Historical Provider HEALTH MAINTENANCE Final Result * Hepatitis C Screening (03/15/2009) Hepatitis C Screening abstracted Historical Provider HEALTH MAINTENANCE Final Result from Last 3 Months or Most Recently Relevant to Health Maintenance Insurance MEDICARE [id number] [address] Care Teams Brush Filler Hand Relationship Specialty Start Date End Date Russel Delvalle MD [address] [place] [address] PCP - General Internal Medicine 09/22/24
== END 2025-06-15 14:15 | disposition home or self-care (01) ==
LOC: HO.HOS 13:25
PROVIDERS: PCP Internal Medicine; Visit Provider Physician Assistant
DX: M70.61 Trochanteric bursitis, right hip (principal)
CPT/HCPCS: 20610; 99213

== ENCOUNTER → 2025-06-15 13:24 | Outpatient (BNVA) | payer MEDICARE, MEDICAID, SELFPAY | PROVIDERS: PCP Internal Medicine; Visit Provider Physician Assistant | DX: M70.61 Trochanteric bursitis, right hip (principal) | CPT/HCPCS: 20610; 99212; J1010; J2003 ==